=== PATIENT | male | born 1990 | race Caucasian/White ===

== ENCOUNTER 2020-01-10 19:58 | Emergency (ER) | payer MEDICAID ==
[2020-01-10] MEDS ORDERED: Acetaminophen 325 MG Tab PO ONE (21:05)
[2020-01-10] MEDS ORDERED: Amoxicillin 500 MG Cap PO ONE (21:05)
--- NOTE | 2020-01-10 21:09 | EDM.PDOC ---
ED HPI GENERAL MEDICAL PROBLEM - General Chief Complaint: Headache Stated Complaint: BRAIN IS HURTING Time Seen by Provider: 01/10/20 20:20 Source of Information: Reports: Patient History Limitations: Reports: Other (The patient is deaf but he is able to read and write without difficulty) - History of Present Illness INITIAL COMMENTS - FREE TEXT/NARRATIVE: This is a 29-year-old male. He is deaf but he is able to read and write with no difficulty. He comes in tonight because he has some nasal congestion and a runny nose and a headache. He says he cannot get any Tylenol from the stores because they are out or at least they are closed right now. He does have a mild cough that appears to be nonproductive. He was thinking he might have coronavirus but I explained to him after examination that he has a sinus infection. He denies any fever. He denies any sore throat. Apparently 3 weeks ago he was in [place] but I could not understand why. He states he was in the hospital but I am not certain if he was actually admitted to the hospital or just went to the hospital. He says he had some similar symptoms that he is having now but that was 3 weeks ago when he did not have a fever then. Overall he is here because of his nasal congestion and drainage and his headache. - Related Data Allergies Allergy/AdvReac Type Severity Reaction Status Date / Time No Known Allergies Allergy Verified 01/10/20 20:55 Home Meds: Home Meds Amoxicillin 500 mg PO TID #21 capsule 01/10/20 [Rx] ED ROS GENERAL - Review of Systems Review Of Systems: See Below Constitutional: Denies: Fever, Chills, Malaise HEENT: Reports: Rhinitis, Sinus Problem, Other (Patient is deaf). Denies: Ear Pain, Throat Pain, Throat Swelling Respiratory: Reports: Cough, Other (Nonproductive). Denies: Shortness of Breath Cardiovascular: Reports: No Symptoms Endocrine: Reports: No Symptoms GI/Abdominal: Denies: Abdominal Pain : Reports: No Symptoms Musculoskeletal: Reports: No Symptoms Skin: Reports: No Symptoms Neurological: Reports: No Symptoms Psychiatric: Reports: No Symptoms - Physical Exam Exam: See Below Exam Limited By: Other (The patient is deaf but he reads and writes without difficulty) General Appearance: Alert, WD/WN, No Apparent Distress Eye Exam: Bilateral Eye: Normal Inspection Ears: Normal External Exam, Normal Canal, Normal TMs Nose: Nasal Drainage, Clear Rhinorrhea. No: Nasal Flaring Throat/Mouth: Normal Inspection, Normal Lips, Normal Oropharynx, No Airway Compromise Head Exam: Normocephalic Neck: Supple, Non-Tender, Other (No nuchal rigidity) Respiratory/Chest: No Respiratory Distress, Lungs Clear, Normal Breath Sounds Cardiovascular: Regular Rate, Rhythm, No Murmur GI/Abdominal: Soft Neuro Exam (Abbreviated): Alert, Oriented, No Motor/Sensory Deficits Back Exam: Normal Inspection, Full Range of Motion Extremities: Normal Inspection, Normal Range of Motion Psychiatric: Normal Affect, Normal Mood Skin Exam: Warm, Dry Course - Vital Signs Last Recorded V/S: Last Vital Signs Temp 97.3 F 01/10/20 20:21 Pulse 68 01/10/20 20:21 Resp 18 01/10/20 20:21 BP 135/90 01/10/20 20:21 Pulse Ox 98 01/10/20 20:21 Departure - Departure Time of Disposition: 21:11 Disposition: Home, Self-Care 01 Condition: Fair Clinical Impression: Acute sinusitis Qualifiers: Sinusitis location: frontal Recurrence: non-recurrent Qualified Code(s): J01.10 - Acute frontal sinusitis, unspecified Acute bronchitis Qualifiers: Bronchitis organism: unspecified organism Qualified Code(s): J20.9 - Acute bronchitis, unspecified Headache Qualifiers: Headache type: unspecified Headache chronicity pattern: acute headache Intractability: not intractable Qualified Code(s): R51 - Headache - Discharge Information *PRESCRIPTION DRUG MONITORING PROGRAM REVIEWED*: Not Applicable *COPY OF PRESCRIPTION DRUG MONITORING REPORT IN PATIENT JONY: Not Applicable Prescriptions: Amoxicillin 500 mg PO TID #21 capsule Instructions: Sinus Headache, Acute Bronchitis, Adult, [id number], Sinusitis , Adult Referrals: PCP,Not In Area [Primary Care Provider] - Additional Instructions: When you go to the pharmacy tomorrow to get the antibiotic prescription, make certain you asked them for some Tylenol for your headache, need to rest and sleep as much as possible, you need to drink more water to stay well-hydrated it will help with your infection, return to the ER if needed Sepsis Event Note - Evaluation Sepsis Screening Result: No Definite Risk - Focused Exam Vital Signs: Vital Signs Temp Pulse Resp BP Pulse Ox 01/10/20 20:21 97.3 F 68 18 135/90 98 Date Exam was Performed: 01/10/20 Time Exam was Performed: 21:04
== END 2020-01-10 21:24 | disposition home or self-care (01) ==
LOC: JD.ED 19:58
DX: J01.10 Acute frontal sinusitis, unspecified (principal); J20.9 Acute bronchitis, unspecified
CPT/HCPCS: 99283; A9270

== ENCOUNTER 2020-02-25 21:19 | Emergency (ER) | payer MEDICAID ==
[2020-02-25] MEDS ORDERED: diphenhydrAMINE 50 MG/ML SDV IVPUSH ONE (21:43)
[2020-02-25] MEDS ORDERED: Metoclopramide 10 MG/2 ML SDV IVPUSH ONE (21:43)
[2020-02-25] MEDS ORDERED: Ketorolac 30 MG/ML SDV IVPUSH ONE (21:43)
[2020-02-25] MEDS ORDERED: Sodium Chloride 0.9% 1,000 ML IV ONE (21:43)
[2020-02-25] MEDS ORDERED: Sodium Chloride 0.9% 10 ML Syringe FLUSH PRN (21:43)
--- NOTE | 2020-02-25 21:49 | EDM.PDOC ---
ED HPI GENERAL MEDICAL PROBLEM - General Chief Complaint: Headache Stated Complaint: SEVERE HEADACHE Time Seen by Provider: 02/25/20 21:25 Source of Information: Reports: Patient History Limitations: Reports: Language Barrier (patient is deaf, but communicates well with paper) - History of Present Illness INITIAL COMMENTS - FREE TEXT/NARRATIVE: Patient is a 29-year-old male who presents to the ED for the evaluation of his headache. The patient is deaf, but does communicate well with paper and pen and was able to answer all questions appropriately. He states that around 1 PM today he developed a left-sided headache, that has some associated nausea and light sensitivity with it. He states that he had taken Tylenol every 3 hours, the rapid release version, x3 today. He was expressing concern over the possibility of taking too much Tylenol. The patient denies any other sick-like symptoms. He was recently seen in this ER in December for a sinus infection. Patient states that he is having some visual aura such as spots with this as well. Patient states he has a history of headaches, that he has been seen in [facility]. 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: Acetaminophen (x 3 doses since 1pm) Left Headache Pain Score (Numeric/FACES): 10 - Related Data Allergies Allergy/AdvReac Type Severity Reaction Status Date / Time No Known Allergies Allergy Verified 01/10/20 20:55 Home Meds: Home Meds FLUoxetine HCl [Fluoxetine] 0 mg PO DAILY 02/25/20 [History] diphenhydrAMINE HCL [Sleep Aid] 0 mg PO BEDTIME 02/25/20 [History] Past Medical History HEENT History: Reports: Hard of Hearing (pt is deaf) Social & Family History - Family History Family Medical History: Unobtainable ED ROS GENERAL - Review of Systems Review Of Systems: Comprehensive ROS is negative, except as noted in HPI. - Physical Exam Exam: See Below Exam Limited By: No Limitations General Appearance: Alert, WD/WN, No Apparent Distress Eye Exam: Bilateral Eye: EOMI, Normal Inspection, PERRL Ears: Normal External Exam, Normal Canal, Hearing Grossly Normal, Normal TMs Nose: Normal Inspection Throat/Mouth: Normal Inspection, Normal Lips, Normal Teeth, Normal Gums, Normal Oropharynx, Normal Voice, No Airway Compromise Head Exam: Atraumatic, Normocephalic Neck: Normal Inspection, Supple, Non-Tender, Full Range of Motion Respiratory/Chest: No Respiratory Distress, Lungs Clear, Normal Breath Sounds, No Accessory Muscle Use, Chest Non-Tender Cardiovascular: Normal Peripheral Pulses, Regular Rate, Rhythm, No Murmur Neuro Exam (Abbreviated): Alert, Oriented, Normal Cognition, No Motor/Sensory Deficits Extremities: Normal Inspection, Normal Capillary Refill Psychiatric: Normal Affect, Normal Mood Skin Exam: Warm, Dry, Intact, Normal Color, No Rash Course - Vital Signs Last Recorded V/S: Last Vital Signs Temp 96.6 F L 02/25/20 21:33 Pulse 69 02/25/20 21:33 Resp 20 02/25/20 21:33 BP 135/94 H 02/25/20 21:33 Pulse Ox 97 02/25/20 21:33 - Orders/Labs/Meds Orders: Active Orders 24 hr Category Date Time Status Peripheral IV Care [RC] . DIRECTED Care 02/25/20 21:43 Ordered Sodium Chloride 0.9% [Saline Flush] Med 02/25/20 21:43 Active 10 ml FLUSH ASDIRECTED PRN Peripheral IV Insertion Adult [OM.PC] Routine Oth 02/25/20 21:43 Ordered Medication Orders Sodium Chloride (Saline Flush) 10 ml FLUSH ASDIRECTED PRN PRN Reason: Keep Vein Open Last Admin: 02/25/20 21:56 Dose: 10 ml Meds: Medications Generic Name Dose Route Start Last Admin Trade Name Freq PRN Reason Stop Dose Admin Sodium Chloride 10 ml 02/25/20 21:43 02/25/20 21:56 Saline Flush FLUSH 10 ml ASDIRECTED PRN Administration Keep Vein Open Discontinued Medications Generic Name Dose Route Start Last Admin Trade Name Freq PRN Reason Stop Dose Admin Diphenhydramine HCl 25 mg 02/25/20 21:43 02/25/20 21:55 Benadryl IVPUSH 02/25/20 21:44 25 mg ONETIME ONE Administration Sodium Chloride 1,000 mls @ 999 mls/hr 02/25/20 21:43 02/25/20 21:56 Normal Saline IV 02/25/20 22:43 999 mls/hr ASDIRECTED ONE Administration Ketorolac Tromethamine 30 mg 02/25/20 21:43 02/25/20 21:55 Toradol IVPUSH 02/25/20 21:44 30 mg ONETIME ONE Administration Metoclopramide HCl 10 mg 02/25/20 21:43 02/25/20 21:56 Reglan IVPUSH 02/25/20 21:44 10 mg ONETIME ONE Administration - Re-Assessments/Exams Free Text/Narrative Re-Assessment/Exam: 02/25/20 21:48 Patient presents to the ED for the evaluation of his headache. He was questioning why he keeps getting headaches. I told him he will likely have to follow-up with his regular provider or neurologist for further evaluation of these. He seemed to elicit understanding at this time. Will have an IV placed with some fluids, 30 mg IV Toradol, 10 mg Reglan, and 25 mg Benadryl for headache management. 02/25/20 23:10 Patient was reassessed at bedside, and states that his headache is much better and is ready for discharge at this time. Departure - Departure Time of Disposition: 23:11 Disposition: Home, Self-Care 01 Condition: Good Clinical Impression: Headache Qualifiers: Headache type: unspecified Headache chronicity pattern: acute headache Intractability: not intractable Qualified Code(s): R51 - Headache - Discharge Information *PRESCRIPTION DRUG MONITORING PROGRAM REVIEWED*: No *COPY OF PRESCRIPTION DRUG MONITORING REPORT IN PATIENT JONY: No Instructions: General Headache Without Cause, [id number] Referrals: PCP,None [Primary Care Provider] - Forms: ED Department Discharge Additional Instructions: You were evaluated in the ED for your headache. You were given a combination of medications and IV fluid for management. This did seem to provide you pretty good relief of your symptoms. Recommend that you go home and rest in a quiet, darkened room. Try also to keep well hydrated. You may benefit from establishing with a family care provider if you do not already have one, for the possibility of a referral to neurology for further evaluation of your headaches. If you do not already have a provider please call our clinic and establish with a family practice provider of choice, our number is [phone]. Please return to the ED if your symptoms should change or worsen. Sepsis Event Note - Evaluation Sepsis Screening Result: No Definite Risk - Focused Exam Vital Signs: Vital Signs Temp Pulse Resp BP Pulse Ox 02/25/20 21:33 96.6 F L 69 20 135/94 H 97 Date Exam was Performed: 02/25/20 Time Exam was Performed: 23:10 - My Orders Last 24 Hours: My Active Orders 02/25/20 21:43 Peripheral IV Care [RC] . DIRECTED Sodium Chloride 0.9% [Saline Flush] 10 ml FLUSH ASDIRECTED PRN Peripheral IV Insertion Adult [OM.PC] Routine - Assessment/Plan Last 24 Hours: My Active Orders 02/25/20 21:43 Peripheral IV Care [RC] . DIRECTED Sodium Chloride 0.9% [Saline Flush] 10 ml FLUSH ASDIRECTED PRN Peripheral IV Insertion Adult [OM.PC] Routine
== END 2020-02-25 23:22 | disposition home or self-care (01) ==
LOC: JD.ED 21:19
DX: R51 Headache (principal); Z79.899 Other long term (current) drug therapy
CPT/HCPCS: 96374; 96375; 99283; J1200; J1885; J2765; J7030

== ENCOUNTER 2020-03-31 15:30 | Emergency (ER) | payer MEDICAID ==
[2020-03-31] MEDS ORDERED: Sodium Chloride 0.9% 10 ML Syringe FLUSH PRN (16:58)
[2020-03-31] MEDS ORDERED: Dextrose 5%-Lactated Ringers 1,000 ML IV SCH (17:00)
--- NOTE | 2020-03-31 17:48 | EDM.PDOC ---
ED HPI GENERAL MEDICAL PROBLEM - General Chief Complaint: General Stated Complaint: SUICIDAL IDEATIONS Time Seen by Provider: 03/31/20 17:02 Source of Information: Reports: Patient History Limitations: Reports: Language Barrier (pt is deaf, a design inserter was utilized at initial triage and exam) - History of Present Illness INITIAL COMMENTS - FREE TEXT/NARRATIVE: Patient is a 29-year-old male who presents to the ED for the evaluation of suicidal ideation. Patient presented to our clinic, and was brought to the ER by clinic staff for suicidal ideations. Patient is clinically deaf, and does only use sign language, but can also converse well if pen and paper have been provided. The patient told the sales property manager and the triage nurse that he only stated he was suicidal, because he was upset over his care in [place] that he received 2 months ago. Patient states that he does not have an active plan to commit suicide, and that he was having his ideations just because of the care he received at that facility. Patient states that he does live in [place] at a motel, but it does not have a kitchen in it, so he has been having issues with dehydration he can try to get himself fed and he uses his bicycle as his main mode of transportation, he notes since the weather has been warmer, he believes he is having some issue with dehydration because he states it is "too hot". Patient states that he does not really have a lot of money, and he has no family in the area, and states he also has a long criminal/psychiatric history, and that he has spent a fair amount of time at the [facility]. Patient states that he is on multiple medications, and has recently run out of his Prozac, but he thinks that if he get a refill of his Prozac that he would start feeling a little bit better. Patient is not combative, nor is he complaining of seeing things that are not there or hearing things that are not there, states he feels mildly nauseated, and slightly dehydrated otherwise he is having no other sick-like symptoms. Abdomen Pain Score (Numeric/FACES): 4 - Related Data Allergies Allergy/AdvReac Type Severity Reaction Status Date / Time No Known Allergies Allergy Verified 03/31/20 17:07 Home Meds: Home Meds FLUoxetine HCl [Fluoxetine HCl] 60 mg PO DAILY 03/31/20 [History] FLUoxetine HCl [Fluoxetine HCl] 60 mg PO DAILY #30 tablet 03/31/20 [Rx] Past Medical History HEENT History: Reports: Hard of Hearing Other HEENT History: left ear surgery Neurological History: Reports: Migraines Other Neuro History: unable to get any other past history as if pt does not know what i mean-writing board communnication. Psychiatric History: Reports: Psych Hospitalization(s), Suicidal Ideation - Past Surgical History HEENT Surgical History: Reports: Oral Surgery, Other (See Below) Other HEENT Surgeries/Procedures: Pt does not have any teeth, has had oral and ear surgeries in the past. Social & Family History - Family History Family Medical History: Unobtainable - Tobacco Use Smoking Status *Q: Never Smoker - Caffeine Use Caffeine Use: Reports: Soda - Recreational Drug Use Recreational Drug Use: No ED ROS GENERAL - Review of Systems Review Of Systems: Comprehensive ROS is negative, except as noted in HPI. ED EXAM, GENERAL - Physical Exam Exam: See Below Exam Limited By: Language Barrier General Appearance: Alert, WD/WN, No Apparent Distress Ears: Normal External Exam Nose: Normal Inspection Throat/Mouth: Normal Inspection, Normal Lips, Normal Teeth, Normal Gums, Normal Oropharynx, Normal Voice, No Airway Compromise Head: Atraumatic, Normocephalic Neck: Normal Inspection Respiratory/Chest: No Respiratory Distress, Lungs Clear, Normal Breath Sounds, No Accessory Muscle Use, Chest Non-Tender Cardiovascular: Normal Peripheral Pulses, Regular Rate, Rhythm, No Murmur Peripheral Pulses: 3+: Radial (L), Radial (R) GI/Abdominal: Normal Bowel Sounds, Soft, Non-Tender, No Distention, No Mass Extremities: Normal Inspection, Normal Capillary Refill Neurological: Alert, Oriented, CN II-XII Intact (grossly), Normal Cognition, No Motor/Sensory Deficits Psychiatric: Normal Affect, Normal Mood Skin Exam: Warm, Dry, Intact, Normal Color, No Rash Course - Vital Signs Last Recorded V/S: Last Vital Signs Temp 98.4 F 03/31/20 16:25 Pulse 72 03/31/20 16:25 Resp 16 03/31/20 16:25 BP 129/87 03/31/20 16:25 Pulse Ox 99 03/31/20 16:25 - Orders/Labs/Meds Orders: Active Orders 24 hr Category Date Time Status Peripheral IV Care [RC] . DIRECTED Care 03/31/20 16:59 Active Abdomen 2V AP Flat Upright [CR] Stat Exams 03/31/20 16:58 Taken UA W/MICROSCOPIC [URIN] Stat Lab 03/31/20 17:00 Ordered Dextrose 5%-Lactated Ringers 1,000 ml Med 03/31/20 17:00 Active IV ASDIRECTED Sodium Chloride 0.9% [Saline Flush] Med 03/31/20 16:58 Active 10 ml FLUSH ASDIRECTED PRN Peripheral IV Insertion Adult [OM.PC] Stat Oth 03/31/20 16:58 Ordered Medication Orders Dextrose/Lactated Ringer's (Dextrose 5%-Lactated Ringers) 1,000 mls @ 999 mls/ hr IV ASDIRECTED GAYLA Last Admin: 03/31/20 17:18 Dose: 999 mls/hr Sodium Chloride (Saline Flush) 10 ml FLUSH ASDIRECTED PRN PRN Reason: Keep Vein Open Last Admin: 03/31/20 17:18 Dose: 10 ml Labs: Laboratory Tests 03/31/20 03/31/20 Range/Units 16:55 16:55 WBC 6.22 (4.23-9.07) K/mm3 RBC 5.20 (4.63-6.08) M/mm3 Hgb 15.4 (13.7-17.5) gm/dl Hct 43.6 (40.1-51.0) % MCV 83.8 (79.0-92.2) fl MCH 29.6 (25.7-32.2) pg MCHC 35.3 (32.2-35.5) g/dl RDW Std Deviation 38.8 (35.1-43.9) fL Plt Count 205 (163-337) K/mm3 MPV 11.1 (9.4-12.3) fl Neut % (Auto) 53.6 (34.0-67.9) % Lymph % (Auto) 25.9 (21.8-53.1) % Allen % (Auto) 6.9 (5.3-12.2) % Eos % (Auto) 12.2 H (0.8-7.0) Baso % (Auto) 1.1 (0.1-1.2) % Neut # (Auto) 3.33 (1.78-5.38) K/mm3 Lymph # (Auto) 1.61 (1.32-3.57) K/mm3 Allen # (Auto) 0.43 (0.30-0.82) K/mm3 Eos # (Auto) 0.76 H (0.04-0.54) K/mm3 Baso # (Auto) 0.07 (0.01-0.08) K/mm3 Sodium 144 (136-145) mEq/L Potassium 3.3 L (3.5-5.1) mEq/L Chloride 105 (98-107) mEq/L Carbon Dioxide 28 (21-32) mEq/L Anion Gap 14.3 (5-15) BUN 6 L (7-18) mg/dL Creatinine 1.0 (0.7-1.3) mg/dL Est Cr Clr Drug Dosing 113.30 mL/min Estimated GFR (MDRD) > 60 (>60) mL/min BUN/Creatinine Ratio 6.0 L (14-18) Glucose 111 H (74-106) mg/dL Calcium 8.9 (8.5-10.1) mg/dL Magnesium 1.8 (1.8-2.4) mg/dl Total Bilirubin 2.1 H (0.2-1.0) mg/dL AST 41 H (15-37) U/L ALT 57 (16-63) U/L Alkaline Phosphatase 112 (46-116) U/L Total Protein 7.7 (6.4-8.2) g/dl Albumin 3.9 (3.4-5.0) g/dl Globulin 3.8 gm/dL Albumin/Globulin Ratio 1.0 (1-2) Meds: Medications Generic Name Dose Route Start Last Admin Trade Name Freq PRN Reason Stop Dose Admin Dextrose/Lactated Ringer's 1,000 mls @ 999 mls/hr 03/31/20 17:00 03/31/20 17: 18 Dextrose 5%-Lactated Ringers IV 999 mls/hr ASDIRECTED GAYLA Administration Sodium Chloride 10 ml 03/31/20 16:58 03/31/20 17:18 Saline Flush FLUSH 10 ml ASDIRECTED PRN Administration Keep Vein Open Discontinued Medications Generic Name Dose Route Start Last Admin Trade Name Freq PRN Reason Stop Dose Admin Magnesium Citrate 296 ml 03/31/20 18:42 Citrate Of Magnesia PO 03/31/20 18:43 ONETIME ONE Potassium Chloride 40 meq 03/31/20 17:55 03/31/20 18:32 Klor-Con M20 PO 03/31/20 17:56 40 meq ONETIME ONE Administration - Re-Assessments/Exams Free Text/Narrative Re-Assessment/Exam: 03/31/20 17:51 Patient upon talking with the patient was brought to the ED for evaluation of his suicidal ideations. I do not believe he is suicidal at all, this is more of a suicidal issue. We will place an IV get some labs given some IV fluids, to get abdomen x-ray as he was complaining of some mild nausea and pointed to his belly when he asked if he was in pain. I will direct him to [facility] tomorrow for further services that he can obtain, and I will try to refill his Prozac for him. It appears that he takes 60mg daily of fluoxetine. 03/31/20 17:54 His abdomen x-ray was taken, and he does have quite a bit of stool throughout his colon, suggestive of constipation. I am hopeful that IV fluids will help, and patient will likely be sent home with a bottle of magnesium citrate. 03/31/20 18:44 I was able to talk with Yandy through [facility], and she does know this gentleman and states that he does have a guardian in [place], and he does email them regularly, but thinks he would probably benefit from a little bit more services at this time, and was wondering about filing a productive adult services order on him, talking with his guardian. I do believe this to be an appropriate plan, and she will try to reach out with him tomorrow. At this time there is no acute reasons to keep him in the ER any longer, he will be discharged after the food has been given to him and he has gotten his fluids. Departure - Departure Time of Disposition: 18:54 Disposition: Home, Self-Care 01 Condition: Good Clinical Impression: Passive suicidal ideations, Dehydration Constipation Qualifiers: Constipation type: unspecified constipation type Qualified Code(s): K59.00 - Constipation, unspecified - Discharge Information *PRESCRIPTION DRUG MONITORING PROGRAM REVIEWED*: No *COPY OF PRESCRIPTION DRUG MONITORING REPORT IN PATIENT JONY: No Prescriptions: FLUoxetine HCl [Fluoxetine HCl] 60 mg PO DAILY #30 tablet Instructions: Suicidal Feelings: How to Help Yourself Forms: ED Department Discharge Additional Instructions: You were evaluated in the ER today for a few different complaints. You were given a prescription for your Prozac medication, please fill this at any pharmacy and start taking as previously directed. [employer] was contacted on your behalf, they will be contacting you to see if you could benefit from some of their social service manager, please correspond with them to try to get yourself in a better place and see if they have any services that could better help you. This would be regarding psychiatric/societal/other. They have multiple venues to utilize. Please try to keep yourself well-hydrated if you are going to be out in the elements during the summertime, as it gets quite warm and you will need to drink water and/or Gatorade to keep and stay hydrated. Laboratory evaluation today demonstrates no acute abnormalities, you were slightly dehydrated so you were given IV fluids, your abdomen x-ray also showed that you were quite constipated. You were given a bottle of magnesium citrate to help relieve the constipation. Please return to the ER at any time if your symptoms should change or worsen. Sepsis Event Note (ED) - Evaluation Sepsis Screening Result: No Definite Risk - Focused Exam Vital Signs: Vital Signs Temp Pulse Resp BP Pulse Ox 03/31/20 16:25 98.4 F 72 16 129/87 99 - My Orders Last 24 Hours: My Active Orders 03/31/20 16:58 Abdomen 2V AP Flat Upright [CR] Stat Sodium Chloride 0.9% [Saline Flush] 10 ml FLUSH ASDIRECTED PRN Peripheral IV Insertion Adult [OM.PC] Stat 03/31/20 16:59 Peripheral IV Care [RC] . DIRECTED 03/31/20 17:00 UA W/MICROSCOPIC [URIN] Stat Dextrose 5%-Lactated Ringers 1,000 ml IV ASDIRECTED - Assessment/Plan Last 24 Hours: My Active Orders 03/31/20 16:58 Abdomen 2V AP Flat Upright [CR] Stat Sodium Chloride 0.9% [Saline Flush] 10 ml FLUSH ASDIRECTED PRN Peripheral IV Insertion Adult [OM.PC] Stat 03/31/20 16:59 Peripheral IV Care [RC] . DIRECTED 03/31/20 17:00 UA W/MICROSCOPIC [URIN] Stat Dextrose 5%-Lactated Ringers 1,000 ml IV ASDIRECTED
[2020-03-31] MEDS ORDERED: Potassium Chloride 20 MEQ Tab.ER PO ONE (17:55)
[2020-03-31] MEDS ORDERED: Magnesium Citrate Solution 296 ML Bottle PO ONE (18:42)
--- NOTE | 2020-04-01 07:39 | CR ---
Abdomen: Supine and upright views of the abdomen were obtained. Comparison: No previous study. Bowel gas pattern is normal. No abnormal calcifications or soft tissue abnormality is seen. Bony structures are unremarkable. Impression: 1. Nothing acute is seen on 2 view abdominal x-ray. Diagnostic code #1 Study was dictated in MDT
== END 2020-03-31 19:34 | disposition home or self-care (01) ==
LOC: JD.ED 15:30
DX: R45.851 Suicidal ideations (principal); E86.0 Dehydration; K59.00 Constipation, unspecified; Z79.899 Other long term (current) drug therapy
CPT/HCPCS: 36415; 74019; 74019-26; 80053; 83735; 85025; 96360; 99284; 99285-25; A9270-GY; J7121

== ENCOUNTER 2020-04-01 16:22 | Emergency (ER) | payer MEDICAID ==
[2020-04-01] MEDS ORDERED: Sodium Chloride 0.9% 10 ML Syringe FLUSH PRN (16:53)
[2020-04-01] MEDS ORDERED: Sodium Chloride 0.9% 1,000 ML IV ONE (16:54)
[2020-04-01] MEDS ORDERED: Metoclopramide 10 MG/2 ML SDV IVPUSH ONE (16:54)
--- NOTE | 2020-04-01 17:02 | EDM.PDOC ---
ED HPI GENERAL MEDICAL PROBLEM - General Chief Complaint: Gastrointestinal Problem Stated Complaint: ABDOMINAL PAIN,DIARRHEA AND LEG PAIN Time Seen by Provider: 04/01/20 16:41 Source of Information: Reports: Patient, RN Notes Reviewed History Limitations: Reports: Language Barrier (pt is deaf; but communicates well with whiteboard/pen/paper.) - History of Present Illness INITIAL COMMENTS - FREE TEXT/NARRATIVE: Patient is a 29-year-old male who presents to the ED for the evaluation of his abdominal pain, diarrhea, and leg pain. Patient was evaluated in this ER yesterday for a few different complaints, he was found to have constipation was dehydrated, and had passive suicidal ideations he had no plan yesterday, that would deem him a harm to himself or others, and was not sought care for psychiatrically. He was given a prescription for Prozac, to take on outpatient basis, was given IV fluids, potassium supplementation, given a meal and discharged home. Patient tried to take the magnesium citrate at home, states he drank 2 ounces of this, and began to have abdominal cramping and diarrhea so he stopped taking the magnesium citrate, also he did not like the taste. He states that he has generalized pain in his legs, as he does use a bicycle for transportation. Patient states that he also has a history of asthma, and has had a cough as of late, but denies any fevers or chills. Patient is in no obvious respiratory distress at the time of exam. We did try to explain to him that the magnesium citrate can cause belly cramping and pain and end with some looser stools, but he states he only did take 2 ounces of this. Abdominal Pain Score (Numeric/FACES): 7 - Related Data Allergies Allergy/AdvReac Type Severity Reaction Status Date / Time No Known Allergies Allergy Verified 04/01/20 17:28 Home Meds: Home Meds FLUoxetine HCl [Fluoxetine HCl] 60 mg PO DAILY 03/31/20 [History] FLUoxetine HCl [Fluoxetine HCl] 60 mg PO DAILY #30 tablet 03/31/20 [Rx] Past Medical History HEENT History: Reports: Hard of Hearing Other HEENT History: left ear surgery Respiratory History: Reports: Asthma Neurological History: Reports: Migraines Other Neuro History: unable to get any other past history as if pt does not know what i mean-writing board communication. Psychiatric History: Reports: Psych Hospitalization(s), Suicidal Ideation - Past Surgical History HEENT Surgical History: Reports: Oral Surgery, Other (See Below) Other HEENT Surgeries/Procedures: Pt does not have any teeth, has had oral and ear surgeries in the past. Social & Family History - Family History Family Medical History: Unobtainable - Caffeine Use Caffeine Use: Reports: Soda - Living Situation & Occupation Living situation: Reports: Single, Alone Social History Comment: pt is deaf; currently lives [facility]; was told by [facility] that he has a guardian in [place]. ED ROS GENERAL - Review of Systems Review Of Systems: See Below Constitutional: Denies: Fever, Chills Respiratory: Reports: Shortness of Breath (pt states that he has Asthma; not in any respiratory distress and O2 sats ar 96% on room air.) GI/Abdominal: Reports: Abdominal Pain (generalized), Constipation, Diarrhea (states had a loose stool after drinking small amount of magnesium citrate), Nausea. Denies: Vomiting : Denies: Dysuria Neurological: Denies: Dizziness Psychiatric: Denies: Depression, Homicidal Ideation, Suicidal Ideation ED EXAM, GI/ABD - Physical Exam Exam: See Below Exam Limited By: Language Barrier (pt is deaf; communicates well with pen/paper/whiteboard) General Appearance: Alert, WD/WN, No Apparent Distress Eyes: Bilateral: Normal Appearance Ears: Normal External Exam Nose: Normal Inspection Throat/Mouth: Normal Inspection, Normal Lips, Normal Teeth, Normal Gums, Normal Oropharynx, Normal Voice, No Airway Compromise Head: Atraumatic, Normocephalic Neck: Normal Inspection Respiratory/Chest: No Respiratory Distress, Lungs Clear, Normal Breath Sounds, No Accessory Muscle Use, Chest Non-Tender Cardiovascular: Normal Peripheral Pulses, Regular Rate, Rhythm, No Edema, No Murmur GI/Abdominal Exam: Soft, Tender (generalized abdomen tenderness), Abnormal Bowel Sounds (hypoactive tones). No: Guarding, Rigid Extremities: Normal Inspection, Normal Capillary Refill Neurological: Alert, Oriented, Normal Cognition, No Motor/Sensory Deficits Psychiatric: Normal Affect, Normal Mood Skin Exam: Warm, Dry, Intact, Normal Color, No Rash Course - Vital Signs Last Recorded V/S: Last Vital Signs Temp 96.9 F 04/01/20 16:47 Pulse 75 04/01/20 16:47 Resp 16 04/01/20 16:47 BP 107/79 04/01/20 16:47 Pulse Ox 96 04/01/20 16:47 - Orders/Labs/Meds Orders: Active Orders 24 hr Category Date Time Status Peripheral IV Care [RC] . DIRECTED Care 04/01/20 16:53 Ordered Sodium Chloride 0.9% [Saline Flush] Med 04/01/20 16:53 Ordered 10 ml FLUSH ASDIRECTED PRN Peripheral IV Insertion Adult [OM.PC] Stat Oth 04/01/20 16:53 Ordered Medication Orders Sodium Chloride (Saline Flush) 10 ml FLUSH ASDIRECTED PRN PRN Reason: Keep Vein Open Last Admin: 04/01/20 17:14 Dose: 10 ml Documented by: VALERIANO Labs: Laboratory Tests 04/01/20 04/01/20 Range/Units 17:10 17:10 WBC 5.94 (4.23-9.07) K/mm3 RBC 4.96 (4.63-6.08) M/mm3 Hgb 14.7 (13.7-17.5) gm/dl Hct 42.1 (40.1-51.0) % MCV 84.9 (79.0-92.2) fl MCH 29.6 (25.7-32.2) pg MCHC 34.9 (32.2-35.5) g/dl RDW Std Deviation 39.5 (35.1-43.9) fL Plt Count 197 (163-337) K/mm3 MPV 11.1 (9.4-12.3) fl Neutrophils % (Manual) 57 (40-60) % Band Neutrophils % 0 (0-10) % Lymphocytes % (Manual) 29 (20-40) % Atypical Lymphs % 0 % Monocytes % (Manual) 6 (2-10) % Eosinophils % (Manual) 8 H (0.8-7.0) % Basophils % (Manual) 0 L (0.2-1.2) Platelet Estimate Adequate RBC Morph Comment Normal Sodium 141 (136-145) mEq/L Potassium 3.6 (3.5-5.1) mEq/L Chloride 107 (98-107) mEq/L Carbon Dioxide 28 (21-32) mEq/L Anion Gap 9.6 (5-15) BUN 8 (7-18) mg/dL Creatinine 0.9 (0.7-1.3) mg/dL Est Cr Clr Drug Dosing 4.34 mL/min Estimated GFR (MDRD) > 60 (>60) mL/min BUN/Creatinine Ratio 8.9 L (14-18) Glucose 103 (74-106) mg/dL Calcium 8.8 (8.5-10.1) mg/dL Magnesium 2.0 (1.8-2.4) mg/dl Total Bilirubin 3.3 H (0.2-1.0) mg/dL AST 37 (15-37) U/L ALT 52 (16-63) U/L Alkaline Phosphatase 113 (46-116) U/L Total Protein 7.1 (6.4-8.2) g/dl Albumin 3.7 (3.4-5.0) g/dl Globulin 3.4 gm/dL Albumin/Globulin Ratio 1.1 (1-2) Meds: Medications Generic Name Dose Route Start Last Admin Trade Name Freq PRN Reason Stop Dose Admin Sodium Chloride 10 ml 04/01/20 16:53 04/01/20 17:14 Saline Flush FLUSH 10 ml ASDIRECTED PRN Administration Keep Vein Open Discontinued Medications Generic Name Dose Route Start Last Admin Trade Name Freq PRN Reason Stop Dose Admin Dicyclomine HCl 20 mg 04/01/20 17:07 04/01/20 17:19 Bentyl PO 04/01/20 17:08 20 mg ONETIME ONE Administration Sodium Chloride 1,000 mls @ 999 mls/hr 04/01/20 16:54 04/01/20 17:14 Normal Saline IV 04/01/20 17:54 999 mls/hr ONETIME ONE Administration Metoclopramide HCl 10 mg 04/01/20 16:54 04/01/20 17:13 Reglan IVPUSH 04/01/20 16:55 10 mg ONETIME ONE Administration - Re-Assessments/Exams Free Text/Narrative Re-Assessment/Exam: 04/01/20 17:13 Patient presents to the ED for the evaluation of his abdominal pain/diarrhea, and leg pain. I am trying to get a hold of [facility] [employer], to try to provide this gentleman some social help. Miller did not give me his guardian's contact info yesterday, however if I do not hear from [facility] in a short amount of time I will refer the case again to [facility] and have them try to come help the gentleman. Nonetheless we will repeat labs, get some IV fluids, and try to get his symptoms under control. He appears to be in no obvious distress or horrible discomfort. I was made aware by the ER director that some of our marketing staff had seen a few posts from the patient on the hospital Facebook page regarding him being a vulnerable adult; I was worried about that yesterday and the staff (Yandy) at [facility] were going to contact the patient for more services today. 04/01/20 17:44 I was able to talk with [facility] social psychologist (Rose), and Stefano through [facility] human services, that is in conjunction with [facility]. And I was able to get the guardians contact information in [place] this person's name is Sania Aguilarkathryn, telephone number is [phone]. She will be added to his next of kin/person to notify as a contact. She states that she sends him $300 at the beginning of each month and he is pretty frugal, and that he chooses to panhandle. She states that if he needs medications filled, that she will pay with credit card over the phone. Sania also stated the Ross should have a consultation with staff from [facility] tomorrow; she believed. Departure - Departure Time of Disposition: 18:32 Disposition: Home, Self-Care 01 Condition: Good Clinical Impression: Dehydration Constipation Qualifiers: Constipation type: unspecified constipation type Qualified Code(s): K59.00 - Constipation, unspecified Pain in the abdomen Qualifiers: Abdominal location: generalized Qualified Code(s): R10.84 - Generalized abdominal pain - Discharge Information *PRESCRIPTION DRUG MONITORING PROGRAM REVIEWED*: No *COPY OF PRESCRIPTION DRUG MONITORING REPORT IN PATIENT JONY: No Referrals: PCP,Unknown [Primary Care Provider] - Forms: ED Department Discharge Additional Instructions: You were evaluated in the ER today regarding your abdominal pain/diarrhea, and leg fatigue. You did have some labs drawn and again these were within normal limits, and you are slightly dehydrated by clinical exam. You were given IV fluids, and another meal at this ER visit. You also given some IV medications to help with nausea and abdominal pain. This seemed to help relieve your symptoms greatly. Recommend you still take the magnesium citrate for a bowel cleanse, you may mix this with a Gatorade, or any other liquid of choice to try to mask the flavor of the magnesium citrate. This is again to relieve the constipation that was rev ealed yesterday on exam. You will get some abdominal cramping with magnesium citrate, I recommend you take some ibuprofen for the abdominal cramping. You will likely end up getting a few looser stools after you have had a few good bowel movements. Since you did fill the Prozac, or fluoxetine, I would recommend you start taking that on a daily basis to help try to regulate your moods. Your guardian, Sania, would like you to contact her, just to see how you have been doing the past couple days. It was made aware to me that someone from [facility] [employer] should be contacting you tomorrow regarding further services. Please return to the ER at any time if your symptoms should change or worsen. Sepsis Event Note (ED) - Focused Exam Vital Signs: Vital Signs Temp Pulse Resp BP Pulse Ox 04/01/20 16:47 96.9 F 75 16 107/79 96 - My Orders Last 24 Hours: My Active Orders 04/01/20 16:53 Peripheral IV Care [RC] . DIRECTED Sodium Chloride 0.9% [Saline Flush] 10 ml FLUSH ASDIRECTED PRN Peripheral IV Insertion Adult [OM.PC] Stat - Assessment/Plan Last 24 Hours: My Active Orders 04/01/20 16:53 Peripheral IV Care [RC] . DIRECTED Sodium Chloride 0.9% [Saline Flush] 10 ml FLUSH ASDIRECTED PRN Peripheral IV Insertion Adult [OM.PC] Stat
[2020-04-01] MEDS ORDERED: Dicyclomine 10 MG Cap PO ONE (17:07)
== END 2020-04-01 19:05 | disposition home or self-care (01) ==
LOC: JD.ED 16:22
DX: K59.00 Constipation, unspecified (principal); E86.0 Dehydration; J45.909 Unspecified asthma, uncomplicated; Z79.899 Other long term (current) drug therapy
CPT/HCPCS: 36415; 80053; 83735; 85007; 85027; 96361; 96374; 99284; A9270; J2765; J7030; 99283

== ENCOUNTER 2020-06-03 20:29 | Emergency (ER) | payer MEDICAID ==
[2020-06-03] MEDS ORDERED: diphenhydrAMINE 50 MG/ML SDV IVPUSH STA (21:25)
[2020-06-03] MEDS ORDERED: Ketorolac 30 MG/ML SDV IVPUSH STA (21:25)
[2020-06-03] MEDS ORDERED: Metoclopramide 10 MG/2 ML SDV IVPUSH STA (21:25)
[2020-06-03] MEDS ORDERED: Sodium Chloride 0.9% 1,000 ML IV ONE (21:25)
--- NOTE | 2020-06-03 21:29 | EDM.PDOC ---
ED HPI GENERAL MEDICAL PROBLEM - General Chief Complaint: Gastrointestinal Problem Stated Complaint: VOMITING/HEADACHES Time Seen by Provider: 06/03/20 20:44 Source of Information: Reports: Patient History Limitations: Reports: Physical Impairment (Deaf) - History of Present Illness INITIAL COMMENTS - FREE TEXT/NARRATIVE: Mr. Severino is a very pleasant 29-year-old gentleman with no chronic medical problems other than being deaf, who now presents the ED stating that he developed a headache, a burning sensation felt in his left religion, yesterday, associated with nausea, vomiting, slight photophobia, and possible visual changes, although the patient was unable to elaborate on that. No associated neurologic symptoms, such as tingling, numbness, or weakness. The patient reported that his headache severity was an 8/10 yesterday, but down to a 3/10 today. He reported that his headache is typical of his recurrent headaches, which he indicated to me occurs every couple of weeks. The patient reported to the triage nurse that he took 500 mg of Tylenol around 15:00 today. He also reported that he experienced 4 episodes of watery diarrhea last week, and one episode today. Here in the ED, the patient is found to be hemodynamically stable, afebrile, saturating 98% on room air. Other than his recurrent headaches, slight photophobia, nausea, vomiting, and watery diarrhea, the patient denies having a recent fever, chills, sore throat, ear pain, nasal or sinus congestion, cough, dyspnea, chest pain, palpitations, constipation, abdominal pain, urinary symptoms, recent weight gain or weight loss, recent bloody bowel movements or black bowel movements, recent joint aches, or rashes. The patient does not have a PCP. Headache Pain Score (Numeric/FACES): 3 - Related Data Allergies Allergy/AdvReac Type Severity Reaction Status Date / Time No Known Allergies Allergy Verified 06/03/20 20:52 Home Meds: Home Meds FLUoxetine HCl [Fluoxetine HCl] 60 mg PO DAILY #30 tablet 03/31/20 [Rx] Past Medical History HEENT History: Reports: Hard of Hearing (Deaf) Neurological History: Reports: Headaches, Chronic Psychiatric History: Reports: Depression, Psych Hospitalization(s), Suicidal Ideation - Past Surgical History HEENT Surgical History: Reports: Oral Surgery (dental extractons), Other (See Below) (left ear surgery) Social & Family History - Family History Family Medical History: Unobtainable - Tobacco Use Smoking Status *Q: Unknown Ever Smoked - Caffeine Use Caffeine Use: Reports: None - Recreational Drug Use Recreational Drug Use: No - Living Situation & Occupation Living situation: Reports: Single, Alone Occupation: Unemployed ED ROS GENERAL - Review of Systems Review Of Systems: Comprehensive ROS is negative, except as noted in HPI. - Physical Exam Exam: See Below Exam Limited By: No Limitations General Appearance: Alert, WD/WN, No Apparent Distress Eye Exam: Bilateral Eye: EOMI, Normal Inspection, PERRL Ears: Normal External Exam, Other (Deaf) Nose: Normal Inspection, Normal Mucosa, No Blood Throat/Mouth: Normal Inspection, Normal Lips, Normal Teeth, Normal Gums, Normal Oropharynx, Normal Voice, No Airway Compromise Head Exam: Atraumatic, Normocephalic Neck: Normal Inspection, Supple, Non-Tender, Full Range of Motion. No: Lymphadenopathy (L), Lymphadenopathy (R) Respiratory/Chest: No Respiratory Distress, Lungs Clear, Normal Breath Sounds, No Accessory Muscle Use Cardiovascular: Normal Peripheral Pulses, Regular Rate, Rhythm, No Edema, No Gallop, No JVD, No Murmur, No Rub GI/Abdominal: Normal Bowel Sounds, Soft, Non-Tender, No Organomegaly, No Distention, No Abnormal Bruit, No Mass (Male) Exam: Deferred Rectal (Males) Exam: Deferred Neuro Exam (Abbreviated): Alert, CN II-XII Intact, No Motor/Sensory Deficits Back Exam: Normal Inspection, Full Range of Motion, NT Extremities: Normal Inspection, Normal Range of Motion, No Pedal Edema, Normal Capillary Refill Psychiatric: Normal Affect Skin Exam: Warm, Dry, Intact, Normal Color, No Rash Course - Vital Signs Last Recorded V/S: Last Vital Signs Temp 36.2 C 06/03/20 20:42 Pulse 79 06/03/20 20:42 Resp 18 06/03/20 20:42 BP 134/88 06/03/20 20:42 Pulse Ox 98 06/03/20 20:42 - Orders/Labs/Meds Meds: Medications Discontinued Medications Generic Name Dose Route Start Last Admin Trade Name Freq PRN Reason Stop Dose Admin Diphenhydramine HCl 25 mg 06/03/20 21:25 06/03/20 22:11 Benadryl IVPUSH 06/03/20 21:26 25 mg ONETIME STA Administration Sodium Chloride 1,000 mls @ 999 mls/hr 06/03/20 21:25 06/03/20 22:11 Normal Saline IV 06/03/20 22:25 999 mls/hr ONETIME ONE Administration Ketorolac Tromethamine 30 mg 06/03/20 21:25 06/03/20 22:11 Toradol IVPUSH 06/03/20 21:26 30 mg ONETIME STA Administration Metoclopramide HCl 10 mg 06/03/20 21:25 06/03/20 22:11 Reglan IVPUSH 06/03/20 21:26 10 mg ONETIME STA Administration - Re-Assessments/Exams Free Text/Narrative Re-Assessment/Exam: 06/03/20 21:27 As above, the patient appears to have developed a left temporal area headache yesterday, which improved from an 8/10 yesterday to a 3/10 today but is associated with nausea and vomiting since yesterday. His neurologic exam at this time is completely normal. I see from prior medical records at that the patient has had similar headaches with good relief after being given Toradol, Reglan, and Benadryl, therefore I have ordered the same, along with IV fluid. 06/03/20 23:01 I went and checked on the patient. He indicates that he is feeling better, well enough to go home. Departure - Departure Time of Disposition: 23:02 Disposition: Home, Self-Care 01 Condition: Good Clinical Impression: Headache Qualifiers: Headache type: unspecified Headache chronicity pattern: acute headache Intractability: not intractable Qualified Code(s): R51 - Headache - Discharge Information *PRESCRIPTION DRUG MONITORING PROGRAM REVIEWED*: Not Applicable *COPY OF PRESCRIPTION DRUG MONITORING REPORT IN PATIENT JONY: Not Applicable Instructions: General Headache Without Cause, [id number] Referrals: PCP,None [Primary Care Provider] - Forms: ED Department Discharge Additional Instructions: You were seen in the emergency room for 2 days of a headache with nausea and vomiting. You were treated with IV fluid and 3 different medicines, with significant improvement in your headache. Going forward, we recommend that you stay adequately hydrated. Gatorade or Powerade are best. Get plenty of rest in a dark place. If any other problems, please do not hesitate to return to the ER. Sepsis Event Note (ED) - Evaluation Sepsis Screening Result: No Definite Risk - Focused Exam Vital Signs: Vital Signs Temp Pulse Resp BP Pulse Ox 06/03/20 20:42 36.2 C 79 18 134/88 98
== END 2020-06-03 23:30 | disposition home or self-care (01) ==
LOC: JD.ED 20:29
DX: R51 Headache (principal); R11.2 Nausea with vomiting, unspecified; F32.9 Major depressive disorder, single episode, unspecified; H91.90 Unspecified hearing loss, unspecified ear; Z79.899 Other long term (current) drug therapy
CPT/HCPCS: 96361; 96374; 96375; 99283-25; J1200; J1885; J2765; J7030

== ENCOUNTER 2020-07-08 17:48 | Emergency (ER) | payer MEDICAID ==
[2020-07-08] MEDS ORDERED: FLUoxetine 20 MG Cap PO ONE (20:10)
[2020-07-08] MEDS ORDERED: QUEtiapine 100 MG Tab PO ONE (20:10)
--- NOTE | 2020-07-08 20:11 | EDM.PDOC ---
ED HPI GENERAL MEDICAL PROBLEM - General Chief Complaint: Medication Administration Stated Complaint: MEDICATION REFILL Time Seen by Provider: 07/08/20 20:06 Source of Information: Reports: Patient History Limitations: Reports: Other (does not communicate verbally. Writes his problems down .) - History of Present Illness INITIAL COMMENTS - FREE TEXT/NARRATIVE: 29-year-old male presents to the ED primarily for medication refills. By history he has a history of major depressive illness with associated insomnia. I could not get a firm history that he has bipolar disorder. He interestingly does not speak. He writes information down to communicate with us. He states he has not slept for the last 3 days due to lack of medications. He tried to get medications refilled through his primary care physician but they never returned his phone calls. Patient is currently on Seroquel require atropine 100 mg every night at bedtime and 60 mg of Prozac daily usually in the morning. He has been without medications for 3 days. He is not showing any serious symptoms of medication withdrawal at this time. He denies being diabetic and is quite thin in stature. He denies feeling any suicidal ideation but he is extremely tired from not being able to sleep. States decreased appetite at this time. Onset: Gradual Onset Date: 07/04/20 Duration: Day(s): (Taken medications on the .), Getting Worse Location: Reports: Generalized (Feels lousy. Loss of appetite unable to sleep for 3 days.) Quality: Reports: Other (Significant insomnia.) Severity: Moderate Improves with: Reports: None Worsens with: Reports: None Context: Reports: Other (Unable to get medications refilled that he is taking chronically.). Denies: Activity, Exercise, Lifting, Sick Contact, Trauma Associated Symptoms: Reports: Headaches ( decreased appetite.), Loss of Appetite (Not sleeping), Malaise, Weakness. 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) (None.) - Related Data Allergies Allergy/AdvReac Type Severity Reaction Status Date / Time No Known Allergies Allergy Verified 07/08/20 18:26 Home Meds: Home Meds FLUoxetine HCl [Fluoxetine HCl] 60 mg PO DAILY #30 tablet 03/31/20 [Rx] FLUoxetine HCl [Prozac] 60 mg PO DAILY #90 capsule 07/08/20 [Rx] QUEtiapine Fumarate [Quetiapine Fumarate] 100 mg PO DAILY #30 tablet 07/08/20 [Rx] Past Medical History HEENT History: Reports: Hard of Hearing (Deaf) Other HEENT History: left ear surgery Cardiovascular History: Reports: None Respiratory History: Reports: Asthma Gastrointestinal History: Reports: None Genitourinary History: Reports: None Musculoskeletal History: Reports: None Neurological History: Reports: Headaches, Chronic Other Neuro History: unable to get any other past history as if pt does not know what i mean-writing board communication. Psychiatric History: Reports: Depression, Psych Hospitalization(s), Suicidal Ideation Endocrine/Metabolic History: Reports: None Hematologic History: Reports: None Immunologic History: Reports: None Oncologic (Cancer) History: Reports: None Dermatologic History: Reports: None - Infectious Disease History Infectious Disease History: Reports: None - Past Surgical History HEENT Surgical History: Reports: Oral Surgery (dental extractons), Other (See Below) (left ear surgery) Social & Family History - Family History Family Medical History: Unobtainable - Caffeine Use Caffeine Use: Reports: None - Living Situation & Occupation Living situation: Reports: Single, Alone Occupation: Unemployed ED ROS GENERAL - Review of Systems Review Of Systems: See Below Constitutional: Reports: Malaise, Weakness, Fatigue, Decreased Appetite, Weight Loss. Denies: Fever, Chills HEENT: Reports: Glasses, Other (Patient is nonverbal. Clear etiology for this) Respiratory: Reports: No Symptoms Cardiovascular: Reports: No Symptoms Endocrine: Reports: Fatigue GI/Abdominal: Reports: Decreased Appetite. Denies: Diarrhea, Nausea, Vomiting : Reports: No Symptoms Musculoskeletal: Reports: No Symptoms Skin: Reports: No Symptoms Neurological: Reports: Headache, Weakness. Denies: Confusion, Dizziness, Pre- Existing Deficit, Trouble Speaking, Difficulty Walking Psychiatric: Reports: Anxiety, Depression Hematologic/Lymphatic: Reports: No Symptoms Immunologic: Reports: No Symptoms ED EXAM, GENERAL - Physical Exam Exam: See Below Exam Limited By: No Limitations General Appearance: Alert, WD/WN, Anxious, Mild Distress, Other (Temperature is 36.4 with a heart rate of 72. Respiratory is 18 O2 sats of 97% room air BP 11/07/1978.) Eye Exam: Bilateral Eye: Normal Inspection, PERRL Throat/Mouth: Other (Tongue is mildly dry and coated. Appears to be mildly volume depleted.) Head: Atraumatic, Normocephalic, Other Neck: Normal Inspection (No overt signs of any head or facial trauma.), Supple, Non-Tender, Full Range of Motion. No: Carotid Bruit, Lymphadenopathy (L), Lymphadenopathy (R) Respiratory/Chest: No Respiratory Distress, Lungs Clear, Normal Breath Sounds, No Accessory Muscle Use Cardiovascular: Normal Peripheral Pulses, Regular Rate, Rhythm, No Edema, No Gallop, No Murmur, No Rub Peripheral Pulses: 3+: Carotid (L), Carotid (R), Posterior Tibial (L), Posterior Tibial (R), Dorsalis Pedis (L), Dorsalis Pedis (R) GI/Abdominal: Normal Bowel Sounds, Soft, Non-Tender, No Organomegaly, No Mass, Pelvis Stable, Other (Male) Exam: No Hernia Extremities: Normal Inspection, Normal Range of Motion, Non-Tender, No Pedal Edema Neurological: Alert, Oriented, CN II-XII Intact, Normal Cognition, Other (Understands verbal communication but he prefers to write his answers down. Unclear why he is nonverbal or if this is congenital.) Psychiatric: Anxious Skin Exam: Warm, Dry, Intact, Normal Color, No Rash Course - Vital Signs Last Recorded V/S: Last Vital Signs Temp 36.4 C 07/08/20 18:19 Pulse 72 07/08/20 18:19 Resp 18 07/08/20 18:19 BP 123/79 07/08/20 18:19 Pulse Ox 97 07/08/20 18:19 - Orders/Labs/Meds Meds: Medications Discontinued Medications Generic Name Dose Route Start Last Admin Trade Name Freq PRN Reason Stop Dose Admin Fluoxetine HCl 60 mg 07/08/20 20:10 07/08/20 20:21 Prozac PO 07/08/20 20:11 60 mg ONETIME ONE Administration Quetiapine Fumarate 100 mg 07/08/20 20:10 07/08/20 20:21 Seroquel PO 07/08/20 20:11 100 mg ONETIME ONE Administration - Radiology Interpretation Free Text/Narrative:: 29-year-old male presents to the ED primarily for medication refill. He has been unable to get medications refilled through his primary care physician for the last 3 days. He usually takes Prozac 20 mg tablets x3 once daily every morning and Seroquel require atropine 100 mg at bedtime daily. He has a history of anxiety and chronic depression. He reports decrease in appetite and severe fatigue from not being able to sleep with an associated headache. Neuro exam was otherwise normal. Interestingly the patient is nonverbal and prefers to communicate by writing. He understands verbal communication. Plan he usually gets his medications filled at clinic pharmacy which is closed at this time. He will therefore be given 60 mg of Prozac by mouth now and Seroquel 100 mg now in the ED and fill prescriptions for medication tomorrow. He will follow-up with his primary care physician physician if any further problems occur. Departure - Departure Time of Disposition: 20:06 Disposition: Home, Self-Care 01 Condition: Fair Clinical Impression: Insomnia Qualifiers: Insomnia type: due to other mental disorder Qualified Code(s): F51.05 - Insomnia due to other mental disorder Major depression in partial remission Qualifiers: Major depression recurrence: recurrent Qualified Code(s): F33.41 - Major depressive disorder, recurrent, in partial remission - Discharge Information *PRESCRIPTION DRUG MONITORING PROGRAM REVIEWED*: Not Applicable *COPY OF PRESCRIPTION DRUG MONITORING REPORT IN PATIENT JONY: Not Applicable Prescriptions: FLUoxetine HCl [Prozac] 60 mg PO DAILY #90 capsule QUEtiapine Fumarate [Quetiapine Fumarate] 100 mg PO DAILY #30 tablet Instructions: Insomnia Referrals: PCP,None [Primary Care Provider] - Forms: ED Department Discharge Sepsis Event Note (ED) - Evaluation Sepsis Screening Result: No Definite Risk - Focused Exam Vital Signs: Vital Signs Temp Pulse Resp BP Pulse Ox 07/08/20 18:19 36.4 C 72 18 123/79 97
== END 2020-07-08 20:22 | disposition home or self-care (01) ==
LOC: JD.ED 17:48
DX: F51.05 Insomnia due to other mental disorder (principal); F33.41 Major depressive disorder, recurrent, in partial remission; Z76.0 Encounter for issue of repeat prescription; J45.909 Unspecified asthma, uncomplicated; Z79.899 Other long term (current) drug therapy
CPT/HCPCS: 99283; A9270; 99284

== ENCOUNTER 2020-12-02 12:19 | Emergency (ER) | payer MEDICAID ==
[2020-12-02] MEDS ORDERED: diphenhydrAMINE 50 MG/ML SDV IVPUSH ONE (12:39)
[2020-12-02] MEDS ORDERED: HYDROmorphone 0.5 MG/0.5 ML Syringe IVPUSH ONE (12:39)
[2020-12-02] MEDS ORDERED: Metoclopramide 10 MG/2 ML SDV IVPUSH ONE (12:39)
--- NOTE | 2020-12-02 12:41 | EDM.PDOC ---
ED HPI GENERAL MEDICAL PROBLEM - General Chief Complaint: Headache Stated Complaint: HEADACHE/ABD PAIN/VOMITING Time Seen by Provider: 12/02/20 12:34 Source of Information: Reports: Patient History Limitations: Reports: No Limitations - History of Present Illness INITIAL COMMENTS - FREE TEXT/NARRATIVE: 30-year-old male who does not speak but communicates by writing on a chalkboard presents to the ED complaining of a diffuse bad headache which he is prone to getting intermittently. Associated with the development of nausea and vomiting and clinically has signs and symptoms of migraine headache. Emesis has been bilious. He has not eaten at all today. Headache started last evening. No recent changes to any of his medications. Patient is on high-dose Seroquel. No neurological deficit identified as he walked back to his room. Cranial nerves II to XII intact. Onset: Unknown/Unsure (Symptoms started after he went to bed last night. He believes around midnight.) Onset Date: 12/02/20 Onset Time: 00:00 Duration: Hour(s):, Constant Location: Reports: Head (Use had pain particular both parietal and temporal scalp.), Abdomen (Nominal discomfort.), Other (Recurrent nausea and vomiting) Quality: Reports: Ache, Throbbing, Other Severity: Moderate (Stating pain in his head. 6 out of 10) Improves with: Reports: None Worsens with: Reports: Other (Trying to eat or drink.) Context: Reports: Other (Spontaneous occurrence during the night.). 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) (Thing will stay down.) Headache Pain Score (Numeric/FACES): 6 - Related Data Allergies Allergy/AdvReac Type Severity Reaction Status Date / Time No Known Allergies Allergy Verified 12/02/20 12:26 Home Meds: Home Meds FLUoxetine HCl [Fluoxetine HCl] 60 mg PO DAILY #30 tablet 03/31/20 [Rx] FLUoxetine HCl [Prozac] 60 mg PO DAILY #90 capsule 07/08/20 [Rx] QUEtiapine Fumarate [Quetiapine Fumarate] 100 mg PO DAILY #30 tablet 07/08/20 [Rx] Past Medical History HEENT History: Reports: Hard of Hearing (Deaf) Other HEENT History: left ear surgery she is extremely hard of hearing and lip reads a good portion of the time to communicate. Otherwise he communicates by writing on a slight or writing pad. Cardiovascular History: Reports: None Respiratory History: Reports: Asthma Gastrointestinal History: Reports: None Genitourinary History: Reports: None Musculoskeletal History: Reports: None Neurological History: Reports: Headaches, Chronic Other Neuro History: unable to get any other past history as if pt does not know what i mean-writing board communication. Psychiatric History: Reports: Depression, Psych Hospitalization(s), Suicidal Ideation Endocrine/Metabolic History: Reports: None Hematologic History: Reports: None Immunologic History: Reports: None Oncologic (Cancer) History: Reports: None Dermatologic History: Reports: None - Infectious Disease History Infectious Disease History: Reports: None - Past Surgical History HEENT Surgical History: Reports: Oral Surgery (dental extractons), Other (See Below) (left ear surgery) Social & Family History - Family History Family Medical History: Unobtainable - Caffeine Use Caffeine Use: Reports: None - Living Situation & Occupation Living situation: Reports: Single, Alone Occupation: Unemployed ED ROS GENERAL - Review of Systems Review Of Systems: See Below Constitutional: Reports: Weakness, Fatigue, Decreased Appetite. 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 He communicates by weight rating) General Appearance: Alert, WD/WN ( on a chalkboard), No Apparent Distress, Other (Temperature is 36.2 heart rate 89 to sinus respiratory is 22 with O2 sats of 98% BP 126/90) Eye Exam: Bilateral Eye: Normal Inspection, PERRL Ears: Other (Evidence of multiple surgeries to both ears. Severe scar tissue both tympanic membranes) Throat/Mouth: Normal Inspection, Normal Oropharynx (Tongue is mildly dry.), Other (Tongue is mildly dry. Lower lips are quite chapped.) Head Exam: Atraumatic, Normocephalic, Other Neck: Normal Inspection (No overt signs of any head or facial trauma), Supple, Non-Tender, Full Range of Motion. No: Lymphadenopathy (L), Lymphadenopathy (R) Respiratory/Chest: Lungs Clear (Mild tachypnea at rest. Mildly hyperventilating.), Normal Breath Sounds, No Accessory Muscle Use, Respiratory Distress Cardiovascular: Normal Peripheral Pulses, Regular Rate, Rhythm, No Edema, No Gallop, No Murmur, No Rub GI/Abdominal: No Organomegaly ( Concern for constipation identified.), Abnormal Bowel Sounds (Bowel sounds are very active in all 4 quadrants. The abdomen is distended and diffusely tympanic to percussion in the upper abdomen compatible with aerophagia. Very dull to percussion across the lower abdomen.). No: Rigid, Rebound, Tender Neuro Exam (Abbreviated): Alert, Oriented, CN II-XII Intact, Normal Cognition, No Motor/Sensory Deficits Back Exam: Normal Inspection, Full Range of Motion Extremities: Normal Inspection, Normal Range of Motion, Non-Tender Psychiatric: Other Skin Exam: Warm, Dry, Intact, Normal Color, No Rash Course - Vital Signs Text/Narrative:: 30-year-old with known psychiatric illness presents to the ED complaining of a diffuse severe headache which she is prone to getting once in a while. Associated development of nausea and vomiting. Appears to headache woke him up during the early hours of the morning and has persisted. Unable to eat at all today. Neuro exam is grossly normal. He communicates by way of writing down on a chalkboard. Currently rates his pain at a headache pain is 6 out of 10. Patient is on fairly high dose Seroquel. Plan given 7.5 mg of Reglan IV with 12.5 mg of Benadryl IV to prevent any extrapyramidal symptoms. Dilaudid 0.5 mg IV with Toradol 30 mg IV for headache relief. Last Recorded V/S: Last Vital Signs Temp 36.2 C 12/02/20 12:29 Pulse 89 12/02/20 12:29 Resp 22 H 12/02/20 12:29 BP 126/90 12/02/20 12:29 Pulse Ox 98 12/02/20 12:29 - Orders/Labs/Meds Meds: Medications Discontinued Medications Generic Name Dose Route Start Last Admin Trade Name Samara PRN Reason Stop Dose Admin Diphenhydramine HCl 12.5 mg 12/02/20 12:39 12/02/20 12:57 Benadryl IVPUSH 12/02/20 12:40 12.5 mg ONETIME ONE Administration Hydromorphone HCl 0.5 mg 12/02/20 12:39 12/02/20 12:59 Dilaudid IVPUSH 12/02/20 12:40 0.5 mg ONETIME ONE Administration Dextrose/Sodium Chloride 1,000 mls @ 999 mls/hr 12/02/20 12:45 12/02/20 13:01 Dextrose 5%-Normal Saline IV 999 mls/hr ASDIRECTED GAYLA Administration Ketorolac Tromethamine 30 mg 12/02/20 12:45 12/02/20 12:55 Toradol IVPUSH 30 mg ONETIME GAYLA Administration Metoclopramide HCl 7.5 mg 12/02/20 12:39 12/02/20 12:53 Reglan IVPUSH 12/02/20 12:40 7.5 mg ONETIME ONE Administration - Radiology Interpretation Free Text/Narrative:: 30-year-old male who is nonverbal due to being deaf and usually reads lips but impossible to do so with masks in place. He presents to the ED complaining of a diffuse headache primarily retro-ocular and parietal scalp bilaterally. He states he awoke with a headache and it developed sometime during the night. Began vomiting during the night and still vomiting this morning unable to keep anything down. Examination reveals neuro exam to be intact. We communicated by him writing on his slate and a writing pad. I noticed his abdomen to be distended and firm to palpation on examination. An x-ray of the abdomen will be obtained. In the meantime he will receive IV medications D5 normal saline at open with 12.5 mg of Bentyl, 7.5 mg of Reglan, Dilaudid 0.5 mg IV, and Toradol 30 mg IV. - Re-Assessments/Exams Free Text/Narrative Re-Assessment/Exam: 12/02/20 13:54 patient states his headache is completely gone and he is feeling good enough to go home. X-ray of the abdomen did show some mild constipation involving the descending colon with the remainder the colon being air-filled. Some of this is due to aerophagia. Constipation is likely secondary to medication Seroquel. That this time I did not offer him any treatment plan other than to purchase MiraLAX powder 17 g once daily to prevent constipation from occurring as need for Seroquel will be a chronic need. Departure - Departure Time of Disposition: 13:49 Disposition: Home, Self-Care 01 Condition: Fair Clinical Impression: Nausea and vomiting in adult, Constipation by delayed colonic transit Migraine headache Qualifiers: Migraine type: without aura Status migrainosus presence: without status migrainosus Intractability: not intractable Qualified Code(s): G43.009 - Migraine without aura, not intractable, without status migrainosus - Discharge Information *PRESCRIPTION DRUG MONITORING PROGRAM REVIEWED*: Not Applicable *COPY OF PRESCRIPTION DRUG MONITORING REPORT IN PATIENT JONY: Not Applicable Instructions: Recurrent Migraine Headache, Nausea and Vomiting, Adult Referrals: PCP,None [Primary Care Provider] - Forms: ED Department Discharge Additional Instructions: Evaluation in the emergency room today in regards to development of a headache during the night which was associate with the development of nausea and vomiting this morning. Headache characteristic of migraine headaches which you have experienced in the past. Also appreciated diffuse abdominal bloating and distention on examination. You were treated with IV fluids and medications Dilaudid, Toradol, Reglan, and Benadryl, for headache and nausea relief. This gave you good relief of the migraine headache. X-ray of the abdomen shows mild constipation involving the left hemicolon otherwise distended with a lot of air. Some with this area is from swallowing air and has to work its way through the colon. Mild constipation is secondary to medication you take Seroquel which is highly constipating. If this is a problem for you you may need to take a stool softener such as MiraLAX powder 17 g or 1 scoop daily to prevent constipation from occurring. Follow-up with personal care provider if any further problems occur. Sepsis Event Note (ED) - Evaluation Sepsis Screening Result: No Definite Risk - Focused Exam Vital Signs: Vital Signs Temp Pulse Resp BP Pulse Ox 12/02/20 12:29 36.2 C 89 22 H 126/90 98
[2020-12-02] MEDS ORDERED: Ketorolac 30 MG/ML SDV IVPUSH SCH (12:45)
[2020-12-02] MEDS ORDERED: Dextrose 5%-0.9% NaCl 1,000 ML IV SCH (12:45)
--- NOTE | 2020-12-02 13:34 | CR ---
Abdomen: Supine view of the abdomen was obtained. Comparison: Prior abdominal x-ray of 03/31/20. Bowel gas pattern appears normal. No abnormal calcifications or soft tissue abnormality is seen. Bony structures appear within normal limits for the patient's age. Impression: 1. Nothing acute is seen on supine abdominal x-ray. Diagnostic code #1
== END 2020-12-02 14:19 | disposition home or self-care (01) ==
LOC: JD.ED 12:19
DX: G43.009 Migraine without aura, not intractable, without status migrainosus (principal); K59.01 Slow transit constipation; J45.909 Unspecified asthma, uncomplicated; Z79.899 Other long term (current) drug therapy
CPT/HCPCS: 74018; 96374; 96375; 99284; J1170; J1200; J1885; J2765; J7042

== ENCOUNTER 2020-12-03 16:19 | Emergency (ER) | payer MEDICAID ==
[2020-12-03] MEDS ORDERED: Sodium Chloride 0.9% 10 ML Syringe FLUSH PRN (17:51)
[2020-12-03] MEDS ORDERED: Metoclopramide 10 MG/2 ML SDV IVPUSH ONE (17:52)
[2020-12-03] MEDS ORDERED: Ketorolac 30 MG/ML SDV IVPUSH ONE (17:52)
[2020-12-03] MEDS ORDERED: Sodium Chloride 0.9% 1,000 ML IV ONE ×2 (17:52→19:42)
[2020-12-03] MEDS ORDERED: diphenhydrAMINE 50 MG/ML SDV IVPUSH ONE (17:53)
--- NOTE | 2020-12-03 17:54 | EDM.PDOC ---
ED HPI GENERAL MEDICAL PROBLEM - General Chief Complaint: Gastrointestinal Problem Stated Complaint: VOMITING AND DIRRHEA NOT BETTER Time Seen by Provider: 12/03/20 17:32 Source of Information: Reports: Patient History Limitations: Reports: No Limitations - History of Present Illness INITIAL COMMENTS - FREE TEXT/NARRATIVE: [age]-year-old male with complaints of nausea, vomiting, diarrhea, runny nose, headaches, abdominal pain and bladder pain. Patient was seen and treated in the ER yesterday with similar complaints however he had a severe headache. He does have a known history of migraine headaches and a's history of mental illness. He takes high-dose Seroquel for this. Patient states he has had 10 loose stools in the past 2 days he also has been traveling recently to [place], [place] and [place]. Questioning Covid. Has denied any fever and chills for me. Is hard to get a thorough history from this patient as he is deaf and mute and he reads lips which is hard to do with the masks in place so he has been communicating via tablet. Abdomen Pain Score (Numeric/FACES): 6 - Related Data Allergies Allergy/AdvReac Type Severity Reaction Status Date / Time No Known Allergies Allergy Verified 12/03/20 16:37 Home Meds: Home Meds FLUoxetine HCl [Prozac] 60 mg PO DAILY #90 capsule 07/08/20 [Rx] QUEtiapine Fumarate [Quetiapine Fumarate] 100 mg PO BEDTIME 12/03/20 [History] Past Medical History HEENT History: Reports: Hard of Hearing Other HEENT History: left ear surgery she is extremely hard of hearing and lip reads a good portion of the time to communicate. Otherwise he communicates by writing on a slight or writing pad. Cardiovascular History: Reports: None Respiratory History: Reports: Asthma Gastrointestinal History: Reports: None Genitourinary History: Reports: None Musculoskeletal History: Reports: None Neurological History: Reports: Headaches, Chronic Other Neuro History: unable to get any other past history as if pt does not know what i mean-writing board communication. Psychiatric History: Reports: Depression, Psych Hospitalization(s), Suicidal Ideation Endocrine/Metabolic History: Reports: None Hematologic History: Reports: None Immunologic History: Reports: None Oncologic (Cancer) History: Reports: None Dermatologic History: Reports: None - Infectious Disease History Infectious Disease History: Reports: None - Past Surgical History HEENT Surgical History: Reports: Oral Surgery, Other (See Below) Other HEENT Surgeries/Procedures: Pt does not have any teeth, has had oral and ear surgeries in the past. Social & Family History - Family History Family Medical History: Unobtainable - Tobacco Use Tobacco Use Status *Q: Never Tobacco User Second Hand Smoke Exposure: No - Caffeine Use Caffeine Use: Reports: None - Recreational Drug Use Recreational Drug Use: No - Living Situation & Occupation Living situation: Reports: Single, Alone Occupation: Unemployed ED ROS GENERAL - Review of Systems Review Of Systems: See Below Constitutional: Reports: Fever, Chills. Denies: Diaphoresis, Decreased Appetite HEENT: Reports: Glasses Respiratory: Reports: Cough. Denies: Sputum Cardiovascular: Reports: No Symptoms Endocrine: Reports: No Symptoms GI/Abdominal: Reports: Abdominal Pain, Diarrhea (Generalized), Nausea, Vomiting : Reports: Dysuria Musculoskeletal: Reports: No Symptoms Skin: Reports: Pallor Neurological: Reports: Headache Psychiatric: Reports: No Symptoms Hematologic/Lymphatic: Reports: No Symptoms Immunologic: Reports: No Symptoms ED EXAM, GI/ABD - Physical Exam Exam: See Below Exam Limited By: No Limitations General Appearance: Alert, WD/WN, No Apparent Distress Ears: No: Hearing Grossly Normal (Patient is deaf) Nose: Normal Inspection Throat/Mouth: Normal Inspection, No Airway Compromise. No: Normal Voice (And is mute) Head: Atraumatic, Normocephalic Neck: Normal Inspection, Supple, Non-Tender, Full Range of Motion Respiratory/Chest: No Respiratory Distress, Lungs Clear, Normal Breath Sounds, No Accessory Muscle Use, Chest Non-Tender Cardiovascular: Normal Peripheral Pulses, Regular Rate, Rhythm, No Edema, No Murmur GI/Abdominal Exam: Normal Bowel Sounds, Soft, Tender (In all 4 quadrants with palpation) (Male) Exam: Deferred Rectal (Males) Exam: Deferred Back Exam: Normal Inspection, Full Range of Motion Extremities: Normal Inspection, Normal Range of Motion, Non-Tender, No Pedal Edema, Normal Capillary Refill Neurological: Alert, Oriented, Normal Cognition Psychiatric: Normal Affect, Normal Mood Skin Exam: Warm, Dry, Intact, No Rash, Pallor Lymphatic: No Adenopathy Course - Vital Signs Text/Narrative:: 30-year-old male with a 2-day history of nausea, vomiting, diarrhea, abdominal pain, bladder pain and runny nose. He was seen and treated in the ER yesterday however no lab work was completed. Upon assessment patient's lung sounds are clear. Abdomen is tender in all quadrants with palpation. And he is nauseated. I have ordered routine labs we will also get a stool sample on him. We will give him a liter of IV fluids and nausea medication as he is likely dehydrated due to vomiting and diarrhea. I will also get him some pain medication for his headache. Last Recorded V/S: Last Vital Signs Temp 97.8 F 12/03/20 16:30 Pulse 85 12/03/20 22:14 Resp 16 12/03/20 22:14 BP 130/83 12/03/20 16:30 Pulse Ox 98 12/03/20 22:14 - Orders/Labs/Meds Orders: Active Orders 24 hr Category Date Time Status KUB [Abdomen 1V Flat] [CR] Stat Exams 12/03/20 21:26 Taken CORONAVIRUS COVID-19 PCR PHL Stat Lab 12/03/20 18:23 Received CULTURE URINE [RM] Stat Lab 12/03/20 19:32 Received STOOL CULTURE/SHIGA TOXIN [MREF] Stat Lab 12/03/20 19:32 Received Potassium Chloride [KCl in Water 10 MEQ/100 ML] 10 meq Med 12/03/20 18:45 Active Premix Bag 1 bag IV Q1H Sodium Chloride 0.9% [Normal Saline] 1,000 ml Med 12/03/20 19:42 Active IV ONETIME Sodium Chloride 0.9% [Saline Flush] Med 12/03/20 17:51 Active 10 ml FLUSH ASDIRECTED PRN Saline Lock Insert [OM.PC] Stat Oth 12/03/20 17:51 Ordered Medication Orders Potassium Chloride 10 meq/ (Premix) 100 mls @ 100 mls/hr IV Q1H GAYLA Stop: 12/03/20 22:44 Last Admin: 12/03/20 20:30 Dose: 100 mls/hr Documented by: Infusion: 12/03/20 20:06 Dose: 100 mls/hr Documented by: Admin: 12/03/20 19:06 Dose: 100 mls/hr Documented by: TREE Sodium Chloride (Normal Saline) 1,000 mls @ 250 mls/hr IV ONETIME ONE Stop: 12/03/20 23:41 Last Admin: 12/03/20 20:20 Dose: 250 mls/hr Documented by: ZIGGY Sodium Chloride (Saline Flush) 10 ml FLUSH ASDIRECTED PRN PRN Reason: Keep Vein Open Last Admin: 12/03/20 18:17 Dose: 10 ml Documented by: TREE Labs: Laboratory Tests 12/03/20 12/03/20 12/03/20 Range/Units 18:03 18:03 19:32 WBC 5.27 (4.23-9.07) K/mm3 RBC 4.99 (4.63-6.08) M/mm3 Hgb 14.7 (13.7-17.5) gm/dl Hct 41.9 (40.1-51.0) % MCV 84.0 (79.0-92.2) fl MCH 29.5 (25.7-32.2) pg MCHC 35.1 (32.2-35.5) g/dl RDW Std Deviation 38.0 (35.1-43.9) fL Plt Count 172 (163-337) K/mm3 MPV 10.7 (9.4-12.3) fl Neut % (Auto) 75.4 H (34.0-67.9) % Lymph % (Auto) 14.2 L (21.8-53.1) % [place] % (Auto) 8.7 (5.3-12.2) % Eos % (Auto) 1.3 (0.8-7.0) Baso % (Auto) 0.2 (0.1-1.2) % Neut # (Auto) 3.97 (1.78-5.38) K/mm3 Lymph # (Auto) 0.75 L (1.32-3.57) K/mm3 [place] # (Auto) 0.46 (0.30-0.82) K/mm3 Eos # (Auto) 0.07 (0.04-0.54) K/mm3 Baso # (Auto) 0.01 (0.01-0.08) K/mm3 Sodium 142 (136-145) mEq/L Potassium 2.8 L (3.5-5.1) mEq/L Chloride 101 (98-107) mEq/L Carbon Dioxide 27 (21-32) mEq/L Anion Gap 16.8 H (5-15) BUN 10 (7-18) mg/dL Creatinine 1.0 (0.7-1.3) mg/dL Est Cr Clr Drug Dosing TNP Estimated GFR (MDRD) > 60 (>60) mL/min BUN/Creatinine Ratio 10.0 L (14-18) Glucose 98 (74-106) mg/dL Calcium 8.6 (8.5-10.1) mg/dL Magnesium 1.8 (1.8-2.4) mg/dl Total Bilirubin 3.9 H (0.2-1.0) mg/dL AST 36 (15-37) U/L ALT 73 H (16-63) U/L Alkaline Phosphatase 108 (46-116) U/L C-Reactive Protein 9.5 H* (<1.0) mg/dL Total Protein 7.6 (6.4-8.2) g/dl Albumin 3.6 (3.4-5.0) g/dl Globulin 4.0 gm/dL Albumin/Globulin Ratio 0.9 L (1-2) Urine Color Yellow (Yellow) Urine Appearance Clear (Clear) Urine pH 7.0 (5.0-8.0) Ur Specific [place] 1.015 (1.005-1.030) Urine Protein Negative (Negative) Urine Glucose (UA) Negative (Negative) Urine Ketones Negative (Negative) Urine Occult Blood Negative (Negative) Urine Nitrite Negative (Negative) Urine Bilirubin Negative (Negative) Urine Urobilinogen 1.0 (0.2-1.0) Ur Leukocyte Esterase Trace H (Negative) Urine RBC 0-5 (0-5) /hpf Urine WBC 0-5 (0-5) /hpf Ur Squamous Epith Cells 0-5 (0-5) /hpf Urine Bacteria Few (FEW) /hpf Urine Mucus Few (FEW) /hpf Meds: Medications Generic Name Dose Route Start Last Admin Trade Name Freq PRN Reason Stop Dose Admin Potassium Chloride 10 meq/ 100 mls @ 100 mls/hr 12/03/20 18:45 12/03/20 20:30 Premix IV 12/03/20 22:44 100 mls/hr Q1H GAYLA Administration Sodium Chloride 1,000 mls @ 250 mls/hr 12/03/20 19:42 12/03/20 20:20 Normal Saline IV 12/03/20 23:41 250 mls/hr ONETIME ONE Administration Sodium Chloride 10 ml 12/03/20 17:51 12/03/20 18:17 Saline Flush FLUSH 10 ml ASDIRECTED PRN Administration Keep Vein Open Discontinued Medications Generic Name Dose Route Start Last Admin Trade Name Samara PRN Reason Stop Dose Admin Diphenhydramine HCl 25 mg 12/03/20 17:53 12/03/20 18:15 Benadryl IVPUSH 12/03/20 17:54 25 mg ONETIME ONE Administration Sodium Chloride 1,000 mls @ 999 mls/hr 12/03/20 17:52 12/03/20 18:12 Normal Saline IV 12/03/20 18:52 999 mls/hr ONETIME ONE Administration Ketorolac Tromethamine 30 mg 12/03/20 17:52 12/03/20 18:13 Toradol IVPUSH 12/03/20 17:53 30 mg ONETIME ONE Administration Metoclopramide HCl 5 mg 12/03/20 17:52 12/03/20 18:14 Reglan IVPUSH 12/03/20 17:53 5 mg ONETIME ONE Administration - Radiology Interpretation Free Text/Narrative:: Nothing acute is appreciated on abdominal x ray. Xray compared to previous xray taken yesterday. - Re-Assessments/Exams Free Text/Narrative Re-Assessment/Exam: 12/03/20 18:53 Labs reveal a WBC of 5.27, hemoglobin 14.7, hematocrit 41.9, sodium 142, potassium 2.8, anion gap 16.8, BUN 10, creatinine 1.0, glucose 98, magnesium 1.8, total bilirubin 3.9, AST 36, ALT 73, alk phos 108, C-reactive protein 9.5, I have ordered for the patient to receive 40 mEq of potassium IV as I do not think he will tolerate p.o. at this time. 12/03/20 19:42 Patient's first liter of normal saline has infused. He is slightly dehydrated so I will order a second liter as he is also complaining of the potassium infusion burning. 12/03/20 20:31 Urinalysis reveals a trace of leuk esterase, urine WBCs are 0-5. 12/03/20 22:19 Pt will be discharged to home once his potassium infusion is complete. The covid test was sent out to the state and they will notify him of the results. Results are pending regarding stool studies. These likely will not be back before the patient is discharged. Departure - Departure Time of Disposition: 23:15 Disposition: Home, Self-Care 01 Condition: Fair Clinical Impression: Hypokalemia, Gastroenteritis, Nausea and vomiting in adult - Discharge Information Instructions: Hypokalemia, Nausea and Vomiting, Adult, [id number], Diarrhea, Adult, [id number] Referrals: PCP,None [Primary Care Provider] - Forms: ED Department Discharge Additional Instructions: You were seen in the ED today with complaints of nausea, vomiting, diarrhea, headache, and generalized abdominal pain. Lab work was completed and you were low on potassium. This is likely due to diarrhea and vomiting. There was not evidence of infection. Xray showed gas and was otherwise unremarkable. You received pain medications, nausea medication, IV fluids and potassium in your IV. You can go home and rest. Drink only clear liquids like gatorade, broth, water, etc for the next 24 hours and then advance your diet to bland foods like toast, crackers, applesauce, rice etc. You likely have gastroenteritis which is a virus and the only treatment is time and rest to get over it. Should your condition worsen, or change, please return to the emergency department. Sepsis Event Note (ED) - Evaluation Sepsis Screening Result: No Definite Risk - Focused Exam Vital Signs: Vital Signs Temp Pulse Resp BP Pulse Ox 12/03/20 22:14 85 16 98 12/03/20 16:30 97.8 F 100 18 130/83 99 - My Orders Last 24 Hours: My Active Orders 12/03/20 17:51 Sodium Chloride 0.9% [Saline Flush] 10 ml FLUSH ASDIRECTED PRN Saline Lock Insert [OM.PC] Stat 12/03/20 18:23 CORONAVIRUS COVID-19 PCR PHL Stat 12/03/20 18:45 Potassium Chloride [KCl in Water 10 MEQ/100 ML] 10 meq Premix Bag 1 bag IV Q1H 12/03/20 19:32 CULTURE URINE [RM] Stat STOOL CULTURE/SHIGA TOXIN [MREF] Stat 12/03/20 19:42 Sodium Chloride 0.9% [Normal Saline] 1,000 ml IV ONETIME 12/03/20 21:26 KUB [Abdomen 1V Flat] [CR] Stat - Assessment/Plan Last 24 Hours: My Active Orders 12/03/20 17:51 Sodium Chloride 0.9% [Saline Flush] 10 ml FLUSH ASDIRECTED PRN Saline Lock Insert [OM.PC] Stat 12/03/20 18:23 CORONAVIRUS COVID-19 PCR PHL Stat 12/03/20 18:45 Potassium Chloride [KCl in Water 10 MEQ/100 ML] 10 meq Premix Bag 1 bag IV Q1H 12/03/20 19:32 CULTURE URINE [RM] Stat STOOL CULTURE/SHIGA TOXIN [MREF] Stat 12/03/20 19:42 Sodium Chloride 0.9% [Normal Saline] 1,000 ml IV ONETIME 12/03/20 21:26 KUB [Abdomen 1V Flat] [CR] Stat
[2020-12-03] MEDS: Potassium Chloride 10 MEQ in Premix Bag 1 BAG IV SCH ×4 (19:06→23:21)
--- NOTE | 2020-12-04 07:48 | CR ---
Abdomen: Supine view of the abdomen was obtained. Comparison: Prior abdominal x-ray of 12/02/20. Bowel gas pattern appears normal. No abnormal calcifications or soft tissue abnormality is seen. Bony structures are unremarkable. Impression: 1. Nothing acute is seen on supine abdominal x-ray. Diagnostic code #1
== END 2020-12-03 23:27 | disposition home or self-care (01) ==
LOC: JD.ED 16:19
DX: E87.6 Hypokalemia (principal); K52.9 Noninfective gastroenteritis and colitis, unspecified; R11.2 Nausea with vomiting, unspecified; J45.909 Unspecified asthma, uncomplicated; Z79.899 Other long term (current) drug therapy; Z20.822 Contact with and (suspected) exposure to COVID-19
CPT/HCPCS: 36415; 74018; 80053; 81001; 83735; 85025; 86140; 87045; 87046; 87086; 87635; 87899; 96365; 96366; 96375; 99284; J1200; J1885; J2765; J3480; J7030; U0002

== ENCOUNTER 2021-01-06 16:21 | Emergency (ER) | payer MEDICAID ==
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
[2021-01-06] MEDS: Potassium Chloride 20 MEQ Tab.ER PO ONE (18:15)
== END 2021-01-06 18:13 | disposition home or self-care (01) ==
LOC: JD.ED 16:21
DX: E83.42 Hypomagnesemia (principal); E87.6 Hypokalemia; J45.909 Unspecified asthma, uncomplicated; Z79.899 Other long term (current) drug therapy
CPT/HCPCS: 36415; 80053; 83735; 85025; 99283; 99284; A9270-GY

== ENCOUNTER 2021-03-13 17:13 | Emergency (ER) | payer MEDICAID ==
[2021-03-13] MEDS ORDERED: Ketorolac 30 MG/ML SDV IVPUSH ONE (17:42)
[2021-03-13] MEDS ORDERED: Sodium Chloride 0.9% 10 ML Syringe FLUSH PRN (17:42)
[2021-03-13] MEDS ORDERED: Metoclopramide 10 MG/2 ML SDV IVPUSH ONE (17:42)
[2021-03-13] MEDS ORDERED: diphenhydrAMINE 50 MG/ML SDV IVPUSH ONE (17:42)
--- NOTE | 2021-03-13 18:20 | EDM.PDOC ---
ED HPI GENERAL MEDICAL PROBLEM - General Chief Complaint: Headache Stated Complaint: HEADACHE Time Seen by Provider: 03/13/21 17:31 Source of Information: Reports: Patient History Limitations: Reports: No Limitations - History of Present Illness INITIAL COMMENTS - FREE TEXT/NARRATIVE: The patient presents with a left sided headache. This started at 7am. He has a history of headaches in the past. He has no numbness or weakness. He has no fever, chills, cough, chest pain or shortness of breath. Onset: Gradual Duration: Hour(s): Location: Reports: Head Quality: Reports: Ache Severity: Moderate Improves with: Reports: None Worsens with: Reports: None Associated Symptoms: Reports: Headaches. Denies: Chest Pain, Cough, Fever/Chills, Nausea/Vomiting, Shortness of Breath Headache Pain Score (Numeric/FACES): 8 - Related Data Allergies Allergy/AdvReac Type Severity Reaction Status Date / Time No Known Allergies Allergy Verified 03/13/21 17:21 Home Meds: Home Meds QUEtiapine Fumarate [Quetiapine Fumarate] 100 mg PO BEDTIME 12/03/20 [History] FLUoxetine HCl [Fluoxetine HCl] 100 mg PO TID 01/06/21 [History] Magnesium Chloride [Slow-Mag] 71.5 mg PO DAILY #7 tablet. 01/06/21 [Rx] Past Medical History HEENT History: Reports: Hard of Hearing Other HEENT History: left ear surgery; communicates with pen and paper Cardiovascular History: Reports: None Respiratory History: Reports: Asthma Gastrointestinal History: Reports: None Genitourinary History: Reports: None Musculoskeletal History: Reports: None Neurological History: Reports: Headaches, Chronic Other Neuro History: unable to get any other past history as if pt does not know what i mean-writing board communication. Psychiatric History: Reports: Depression, Psych Hospitalization(s), Suicidal Ideation Endocrine/Metabolic History: Reports: None Hematologic History: Reports: None Immunologic History: Reports: None Oncologic (Cancer) History: Reports: None Dermatologic History: Reports: None - Infectious Disease History Infectious Disease History: Reports: None - Past Surgical History HEENT Surgical History: Reports: Oral Surgery, Other (See Below) Other HEENT Surgeries/Procedures: Pt does not have any teeth, has had oral and ear surgeries in the past. Social & Family History - Family History Family Medical History: Unobtainable Cardiac: Reports: None Respiratory: Reports: None GI: Reports: None : Reports: None OBGYN: Reports: None Musculoskeletal: Reports: None - Tobacco Use Tobacco Use Status *Q: Never Tobacco User - Caffeine Use Caffeine Use: Reports: Energy Drinks, Soda - Recreational Drug Use Recreational Drug Use: No - Living Situation & Occupation Living situation: Reports: Single, Alone Occupation: Unemployed ED ROS GENERAL - Review of Systems Review Of Systems: See Below Constitutional: Reports: No Symptoms HEENT: Reports: No Symptoms Respiratory: Reports: No Symptoms Cardiovascular: Reports: No Symptoms Endocrine: Reports: No Symptoms GI/Abdominal: Reports: No Symptoms : Reports: No Symptoms Musculoskeletal: Reports: No Symptoms Neurological: Reports: Headache - Physical Exam Exam: See Below Exam Limited By: No Limitations General Appearance: Alert, No Apparent Distress Ears: Normal External Exam Nose: Normal Inspection Head Exam: Atraumatic, Normocephalic Neck: Normal Inspection Respiratory/Chest: No Respiratory Distress, Lungs Clear, Normal Breath Sounds Cardiovascular: Regular Rate, Rhythm, No Edema, No Murmur GI/Abdominal: Soft, Non-Tender, No Organomegaly Neuro Exam (Abbreviated): Alert, Oriented, No Motor/Sensory Deficits Course - Vital Signs Last Recorded V/S: Last Vital Signs Temp 97.2 F 03/13/21 17:25 Pulse 74 03/13/21 17:25 Resp 18 03/13/21 17:25 BP 136/91 H 03/13/21 17:25 Pulse Ox 97 03/13/21 17:25 - Orders/Labs/Meds Orders: Active Orders 24 hr Category Date Time Status Peripheral IV Care [RC] . DIRECTED Care 03/13/21 17:42 Active Head wo Cont [CT] Stat Exams 03/13/21 17:41 Taken Sodium Chloride 0.9% [Saline Flush] Med 03/13/21 17:42 Active 10 ml FLUSH ASDIRECTED PRN Peripheral IV Insertion Adult [OM.PC] Routine Oth 03/13/21 17:42 Ordered Medication Orders Sodium Chloride (Sodium Chloride 0.9% 10 Ml Syringe) 10 ml FLUSH ASDIRECTED PRN PRN Reason: Keep Vein Open Last Admin: 03/13/21 17:53 Dose: 10 ml Documented by: KATELYNN Meds: Medications Generic Name Dose Route Start Last Admin Trade Name Freq PRN Reason Stop Dose Admin Sodium Chloride 10 ml 03/13/21 17:42 03/13/21 17:53 Sodium Chloride 0.9% 10 Ml Syringe FLUSH 10 ml ASDIRECTED PRN Administration Keep Vein Open Discontinued Medications Generic Name Dose Route Start Last Admin Trade Name Jakeq PRN Reason Stop Dose Admin Diphenhydramine HCl 50 mg 03/13/21 17:42 03/13/21 17:53 Diphenhydramine 50 Mg/Ml Sdv IVPUSH 03/13/21 17:43 50 mg ONETIME ONE Administration Ketorolac Tromethamine 30 mg 03/13/21 17:42 03/13/21 17:52 Ketorolac 30 Mg/Ml Sdv IVPUSH 03/13/21 17:43 30 mg ONETIME ONE Administration Metoclopramide HCl 10 mg 03/13/21 17:42 03/13/21 17:54 Metoclopramide 10 Mg/2 Ml Sdv IVPUSH 03/13/21 17:43 10 mg ONETIME ONE Administration - Re-Assessments/Exams Free Text/Narrative Re-Assessment/Exam: 03/13/21 18:20 I ordered an IV saline lock, reglan 10mg IV, benadryl 50mg IV, toradol 30mg IV and a CT of his head. 03/13/21 18:[address] of his head looks good. He feels better. I will discharge him home. Departure - Departure Time of Disposition: 18:40 Disposition: Home, Self-Care 01 Condition: Good Clinical Impression: Headache Qualifiers: Headache type: unspecified Headache chronicity pattern: acute headache Intractability: not intractable Qualified Code(s): R51 - Headache - Discharge Information *PRESCRIPTION DRUG MONITORING PROGRAM REVIEWED*: Not Applicable *COPY OF PRESCRIPTION DRUG MONITORING REPORT IN PATIENT JONY: Not Applicable Referrals: Vega Aj NP [Primary Care Provider] - 1 Week Forms: ED Department Discharge Additional Instructions: Go home and rest. Drink plenty of fluids. Follow up with your provider this week. Please return if you are worse. Sepsis Event Note (ED) - Evaluation Sepsis Screening Result: No Definite Risk - Focused Exam Vital Signs: Vital Signs Temp Pulse Resp BP Pulse Ox 03/13/21 17:25 97.2 F 74 18 136/91 H 97 - My Orders Last 24 Hours: My Active Orders 03/13/21 17:41 Head wo Cont [CT] Stat 03/13/21 17:42 Peripheral IV Care [RC] . DIRECTED Sodium Chloride 0.9% [Saline Flush] 10 ml FLUSH ASDIRECTED PRN Peripheral IV Insertion Adult [OM.PC] Routine - Assessment/Plan Last 24 Hours: My Active Orders 03/13/21 17:41 Head wo Cont [CT] Stat 03/13/21 17:42 Peripheral IV Care [RC] . DIRECTED Sodium Chloride 0.9% [Saline Flush] 10 ml FLUSH ASDIRECTED PRN Peripheral IV Insertion Adult [OM.PC] Routine
--- NOTE | 2021-03-14 18:17 | CT ---
Head CT Technique: Multiple axial sections through the brain were obtained. Intravenous contrast was not utilized. Reconstructed coronal and sagittal images were also obtained. Comparison: No prior intracranial imaging is available. Findings: Ventricles along with basal cisterns and sulci over the convexities are within normal limits for the patient's age. No abnormal parenchymal densities are seen. No evidence of intracranial hemorrhage. No midline shift or mass-effect is seen. Bone window settings were reviewed which show no acute osseous abnormality. There is fairly prominent mucosal thickening within the ethmoid and frontal sinuses as well as sphenoid sinus. Impression: 1. Mucosal thickening within the paranasal sinuses as noted above. This is most likely chronic. Please correlate. 2. Nothing acute is otherwise seen on noncontrast head CT exam. Diagnostic code #3 I agree with preliminary report from [facility], finalized on 03/13/21, 7:30 PM CDT, code 1
== END 2021-03-13 18:50 | disposition home or self-care (01) ==
LOC: JD.ED 17:13
DX: R51.9 Headache, unspecified (principal)
CPT/HCPCS: 70450; 96374; 96375; 99284; J1200; J1885; J2765

== ENCOUNTER 2021-03-24 08:35 | Emergency (ER) | payer MEDICAID ==
[2021-03-24] MEDS ORDERED: Sodium Chloride 0.9% 10 ML Syringe FLUSH PRN (08:57)
[2021-03-24] MEDS ORDERED: Metoclopramide 10 MG/2 ML SDV IVPUSH ONE (08:59)
[2021-03-24] MEDS ORDERED: diphenhydrAMINE 50 MG/ML SDV IVPUSH ONE (08:59)
[2021-03-24] MEDS ORDERED: Ketorolac 30 MG/ML SDV IVPUSH ONE (08:59)
[2021-03-24] MEDS ORDERED: Sodium Chloride 0.9% 1,000 ML IV ONE (08:59)
--- NOTE | 2021-03-24 09:08 | EDM.PDOC ---
ED HPI GENERAL MEDICAL PROBLEM - General Chief Complaint: General Stated Complaint: [facility] Time Seen by Provider: 03/24/21 08:41 Source of Information: Reports: Patient History Limitations: Reports: Other - History of Present Illness INITIAL COMMENTS - FREE TEXT/NARRATIVE: 30-year-old male presents to the emergency department with complaints of shortness of breath, wheezing, migraine headache, fever, and diarrhea. The patient is known to this emergency department and has frequent ER visits. He is deaf however he is able to read lips however at this time is unable to due to wearing masks. He communicates via a notepad. Patient states that over the course of the past 2 days he has developed shortness of breath and a nonproductive cough. He is also had wheezing. He reports having a history of asthma however he does not use any asthma type medications. He denies smoking ever in his life. He denies any recreational drug use. He does have a history of migraine and states this started about 2 days ago headache pain is primarily ocular and temporal. He does admit to having some blurred vision however no double vision or floaters. States he has had fever over the past couple of days however denies chills. He is unable to tell me what his temperature has been because he has not taken it. He also complains of diarrhea however on his last ER visit when I saw him back in November that was his chief complaint and we did do a full work-up with stool studies and these all came back negative so I suspect this is his norm. He denies any abdominal pain or cramping. Complains of some discomfort in his right leg. The patient does have a history of mental health issues and he does admit that he is still taking his Seroquel and Zoloft as prescribed. His primary care provider is Norah Gupta NP. Headache Pain Score (Numeric/FACES): 4 - Related Data Allergies Allergy/AdvReac Type Severity Reaction Status Date / Time No Known Allergies Allergy Verified 03/24/21 08:43 Home Meds: Home Meds QUEtiapine Fumarate [Quetiapine Fumarate] 100 mg PO BEDTIME 12/03/20 [History] FLUoxetine HCl [Fluoxetine HCl] 100 mg PO TID 01/06/21 [History] Magnesium Chloride [Slow-Mag] 71.5 mg PO DAILY #7 tablet. 01/06/21 [Rx] Amoxicillin 1,000 mg PO TID #28 tab 03/24/21 [Rx] Past Medical History HEENT History: Reports: Hard of Hearing Other HEENT History: left ear surgery; communicates with pen and paper Cardiovascular History: Reports: None Respiratory History: Reports: Asthma Gastrointestinal History: Reports: None Genitourinary History: Reports: None Musculoskeletal History: Reports: None Neurological History: Reports: Headaches, Chronic Other Neuro History: unable to get any other past history as if pt does not know what i mean-writing board communication. Psychiatric History: Reports: Depression, Psych Hospitalization(s), Suicidal Ideation Endocrine/Metabolic History: Reports: None Hematologic History: Reports: None Immunologic History: Reports: None Oncologic (Cancer) History: Reports: None Dermatologic History: Reports: None - Infectious Disease History Infectious Disease History: Reports: None - Past Surgical History HEENT Surgical History: Reports: Oral Surgery, Other (See Below) Other HEENT Surgeries/Procedures: Pt does not have any teeth, has had oral and ear surgeries in the past. Social & Family History - Family History Family Medical History: Unobtainable Cardiac: Reports: None Respiratory: Reports: None GI: Reports: None : Reports: None OBGYN: Reports: None Musculoskeletal: Reports: None - Tobacco Use Tobacco Use Status *Q: Never Tobacco User - Caffeine Use Caffeine Use: Reports: Energy Drinks, Soda - Living Situation & Occupation Living situation: Reports: Single, Alone Occupation: Unemployed ED ROS GENERAL - Review of Systems Review Of Systems: Comprehensive ROS is negative, except as noted in HPI. ED EXAM, GENERAL - Physical Exam Exam: See Below Exam Limited By: Other (Patient is deaf and does read lips however with the requirement of wearing masks he communicates using a note pad and paper) General Appearance: Alert, WD/WN, Mild Distress Eye Exam: Bilateral Eye: PERRL Ears: Normal External Exam, Other (pt is deaf) Nose: Normal Inspection Throat/Mouth: Normal Inspection, Normal Lips, No Airway Compromise. No: Normal Voice (pt is nonverbal; mute) Head: Atraumatic Neck: Normal Inspection, Supple Respiratory/Chest: No Accessory Muscle Use, Chest Non-Tender, Wheezing (inspiratory and expiratory). No: Lungs Clear, Normal Breath Sounds Cardiovascular: Normal Peripheral Pulses, Regular Rate, Rhythm, No Murmur Peripheral Pulses: 2+: Radial (L), Radial (R) GI/Abdominal: Normal Bowel Sounds, Soft, Non-Tender, No Distention (Male) Exam: Deferred Rectal (Males) Exam: Deferred Back Exam: Normal Inspection Extremities: Normal Inspection, Normal Range of Motion, Non-Tender, No Pedal Edema, Normal Capillary Refill Neurological: Alert, Oriented, Normal Cognition Psychiatric: Normal Affect, Normal Mood Skin Exam: Warm, Dry, Intact, Normal Color, No Rash Lymphatic: No Adenopathy Course - Vital Signs Text/Narrative:: Upon assessment, the patient does have audible inspiratory and expiratory wheezes throughout. The patient did receive an albuterol nebulizer by the EMS crew in route to the hospital. However his O2 saturations are 93% on room air at the time of triage. He is afebrile. I have ordered labs to include a CBC, CMP, C-reactive protein and magnesium level as well as a urine with micro and culture if indicated. I have ordered portable chest x-ray to rule out pneumonia. I have also ordered for him to receive a liter of normal saline IV, Toradol, Reglan and Benadryl. Reglan and Benadryl to hopefully vasquez off any extrapyramidal effects. We will see if we can abort his migraine headache with the fluids and medications. Last Recorded V/S: Last Vital Signs Temp 97.8 F 03/24/21 08:41 Pulse 83 03/24/21 08:41 Resp 16 03/24/21 08:41 BP 129/93 H 03/24/21 08:41 Pulse Ox 97 03/24/21 11:06 - Orders/Labs/Meds Orders: Active Orders 24 hr Category Date Time Status RT Aerosol Therapy [RC] ASDIRECTED Care 03/24/21 09:11 Active RT Post Treatment Assessment [RC] Click to Edit Care 03/24/21 10:41 Active RT Pre-Treatment Assessment [RC] Click to Edit Care 03/24/21 10:41 Active UA RFX ESAU AND CULT IF INDIC [URIN] Stat Lab 03/24/21 08:58 Ordered Sodium Chloride 0.9% [Saline Flush] Med 03/24/21 08:57 Active 10 ml FLUSH ASDIRECTED PRN Saline Lock Insert [OM.PC] Stat Oth 03/24/21 08:57 Ordered Medication Orders Sodium Chloride (Sodium Chloride 0.9% 10 Ml Syringe) 10 ml FLUSH ASDIRECTED PRN PRN Reason: Keep Vein Open Last Admin: 03/24/21 09:16 Dose: 10 ml Documented by: ROSARIO Labs: Laboratory Tests 03/24/21 03/24/21 03/24/21 Range/Units 09:15 09:15 10:11 WBC 11.00 H (4.23-9.07) K/mm3 RBC 4.86 (4.63-6.08) M/mm3 Hgb 14.4 (13.7-17.5) gm/dl Hct 41.2 (40.1-51.0) % MCV 84.8 (79.0-92.2) fl MCH 29.6 (25.7-32.2) pg MCHC 35.0 (32.2-35.5) g/dl RDW Std Deviation 38.9 (35.1-43.9) fL Plt Count 199 (163-337) K/mm3 MPV 11.2 (9.4-12.3) fl Neut % (Auto) 76.2 H (34.0-67.9) % Lymph % (Auto) 11.5 L (21.8-53.1) % Mobile % (Auto) 5.9 (5.3-12.2) % Eos % (Auto) 6.1 (0.8-7.0) Baso % (Auto) 0.2 (0.1-1.2) % Neut # (Auto) 8.38 H (1.78-5.38) K/mm3 Lymph # (Auto) 1.27 L (1.32-3.57) K/mm3 Mobile # (Auto) 0.65 (0.30-0.82) K/mm3 Eos # (Auto) 0.67 H (0.04-0.54) K/mm3 Baso # (Auto) 0.02 (0.01-0.08) K/mm3 Sodium 141 (136-145) mEq/L Potassium 3.4 L (3.5-5.1) mEq/L Chloride 105 (98-107) mEq/L Carbon Dioxide 26 (21-32) mEq/L Anion Gap 13.4 (5-15) BUN 9 (7-18) mg/dL Creatinine 1.0 (0.7-1.3) mg/dL Est Cr Clr Drug Dosing TNP Estimated GFR (MDRD) > 60 (>60) mL/min BUN/Creatinine Ratio 9.0 L (14-18) Glucose 119 H (70-99) mg/dL Calcium 8.6 (8.5-10.1) mg/dL Magnesium 1.7 L (1.8-2.4) mg/dL Total Bilirubin 2.4 H (0.2-1.0) mg/dL AST 22 (15-37) U/L ALT 35 (16-63) U/L Alkaline Phosphatase 116 (46-116) U/L C-Reactive Protein 3.8 H* (<1.0) mg/dL Total Protein 7.4 (6.4-8.2) g/dl Albumin 3.6 (3.4-5.0) g/dl Globulin 3.8 gm/dL Albumin/Globulin Ratio 1.0 (1-2) SARS-CoV-2 RNA (MARY) Negative (NEGATIVE) Meds: Medications Generic Name Dose Route Start Last Admin Trade Name Samara PRN Reason Stop Dose Admin Sodium Chloride 10 ml 03/24/21 08:57 03/24/21 09:16 Sodium Chloride 0.9% 10 Ml Syringe FLUSH 10 ml ASDIRECTED PRN Administration Keep Vein Open Discontinued Medications Generic Name Dose Route Start Last Admin Trade Name Samara PRN Reason Stop Dose Admin Albuterol/Ipratropium 3 ml 03/24/21 09:11 03/24/21 09:26 Albuterol/Ipratropium 3.0-0.5 Mg/3 Ml Neb Soln NEB 03/24/21 09:12 3 ml ONETIME ONE Administration Amoxicillin 1,000 mg 03/24/21 11:00 Amoxicillin 500 Mg Cap PO 03/24/21 11:01 ONETIME ONE Diphenhydramine HCl 25 mg 03/24/21 08:59 03/24/21 09:15 Diphenhydramine 50 Mg/Ml Sdv IVPUSH 03/24/21 09:00 25 mg ONETIME ONE Administration Sodium Chloride 1,000 mls @ 999 mls/hr 03/24/21 08:59 03/24/21 09:15 Normal Saline IV 03/24/21 09:59 999 mls/hr ONETIME ONE Administration Ipratropium [place] 0.5 mg 03/24/21 10:41 03/24/21 11:05 Ipratropium 0.02% 0.5 Mg/2.5 Ml Neb Soln NEB 03/24/21 10:42 0.5 mg ONETIME ONE Administration Ketorolac Tromethamine 30 mg 03/24/21 08:59 03/24/21 09:15 Ketorolac 30 Mg/Ml Sdv IVPUSH 03/24/21 09:00 30 mg ONETIME ONE Administration Metoclopramide HCl 5 mg 03/24/21 08:59 03/24/21 09:16 Metoclopramide 10 Mg/2 Ml Sdv IVPUSH 03/24/21 09:00 5 mg ONETIME ONE Administration Potassium Chloride 40 meq 03/24/21 09:57 03/24/21 10:57 Potassium Chloride 20 Meq Tab.Er PO 03/24/21 09:58 40 meq ONETIME ONE Administration Prednisone 40 mg 03/24/21 10:41 03/24/21 10:57 Prednisone 20 Mg Tab PO 03/24/21 10:42 40 mg ONETIME ONE Administration - Re-Assessments/Exams Free Text/Narrative Re-Assessment/Exam: 03/24/21 10:32 Portable view of the chest reviewed by myself and Dr. Ansari and nothing acute is appreciated. Formal radiology report is pending. 03/24/21 10:34 Hematology reveals a WBC of 11.0, hemoglobin 14.4, hematocrit 41.2, neutrophil percentage 76.2 Chemistry reveals a sodium of 141, potassium of 3.4, chloride 105, anion gap 13.4, BUN 9, creatinine 1.0, glucose 119, magnesium 1.7, total bilirubin 2.4, AST 22, ALT 35, alk phos 116, C-reactive protein 3.8 I have ordered for the patient to receive 40 mEq of potassium orally. I 03/24/21 10:40 Patient no longer has inspiratory wheezes however he does have expiratory wheezes noted bilaterally. I suspect that this is a flareup of asthma. I am going to order an Atrovent treatment and 40 mg of potassium oral. 03/24/21 10:42 Patient states his headache pain has resolved. 03/24/21 11:09 Radiologist impression portable view of the chest: 1. Slight density within both lung bases raising the probability of small area of pneumonia. Please correlate with the patient's symptoms. I have ordered for the patient to receive 1 g of amoxicillin p.o. Patient will be then be discharged home with a prescription. 03/24/21 11:19 Patient's Covid test is negative. Departure - Departure Time of Disposition: 11:30 Disposition: Home, Self-Care 01 Condition: Good Clinical Impression: Pneumonia Qualifiers: Pneumonia type: due to unspecified organism Laterality: bilateral Lung location: lower lobe of lung Qualified Code(s): J18.9 - Pneumonia, unspecified organism - Discharge Information Prescriptions: Amoxicillin 1,000 mg PO TID #28 tab Referrals: Vega Aj NP [Primary Care Provider] - Forms: ED Department Discharge Additional Instructions: You were seen in the emergency department today with complaints of shortness of breath, wheezing, and a migraine headache. Labs and a chest x-ray were completed. Your white blood cell count was slightly elevated and the radiologist read your chest x-ray as having pneumonia. You were started on an antibiotic and you were given 1 dose of steroid. I have sent a prescription to your pharmacy for an antibiotic called amoxicillin. You will need to take 2 tablets of this antibiotic 3 times daily until it is gone. You will then need to follow-up with your regular doctor in about 1 week to follow-up and make sure your pneumonia has resolved. You were also given IV fluids and medications to resolve your migraine headache and this did seem to help. Your potassium level was slightly low so we did give you a potassium tablet as well. Sepsis Event Note (ED) - Evaluation Sepsis Screening Result: No Definite Risk - Focused Exam Vital Signs: Vital Signs Temp Pulse Resp BP Pulse Ox Pulse Ox 03/24/21 11:06 97 03/24/21 09:11 96 03/24/21 08:41 97.8 F 83 16 129/93 H 93 L - My Orders Last 24 Hours: My Active Orders 03/24/21 08:57 Sodium Chloride 0.9% [Saline Flush] 10 ml FLUSH ASDIRECTED PRN Saline Lock Insert [OM.PC] Stat 03/24/21 08:58 UA RFX ESAU AND CULT IF INDIC [URIN] Stat 03/24/21 09:11 RT Aerosol Therapy [RC] ASDIRECTED 03/24/21 10:41 RT Post Treatment Assessment [RC] Click to Edit RT Pre-Treatment Assessment [RC] Click to Edit - Assessment/Plan Last 24 Hours: My Active Orders 03/24/21 08:57 Sodium Chloride 0.9% [Saline Flush] 10 ml FLUSH ASDIRECTED PRN Saline Lock Insert [OM.PC] Stat 03/24/21 08:58 UA RFX ESAU AND CULT IF INDIC [URIN] Stat 03/24/21 09:11 RT Aerosol Therapy [RC] ASDIRECTED 03/24/21 10:41 RT Post Treatment Assessment [RC] Click to Edit RT Pre-Treatment Assessment [RC] Click to Edit
[2021-03-24] MEDS ORDERED: Albuterol/Ipratropium 3.0-0.5 MG/3 ML Neb Soln NEB ONE (09:11)
[2021-03-24] MEDS ORDERED: Potassium Chloride 20 MEQ Tab.ER PO ONE (09:57)
[2021-03-24] MEDS ORDERED: predniSONE 20 MG Tab PO ONE (10:41)
[2021-03-24] MEDS ORDERED: Ipratropium 0.02% 0.5 MG/2.5 ML Neb Soln NEB ONE (10:41)
--- NOTE | 2021-03-24 10:46 | CR ---
Chest: Portable view of the chest was obtained. Comparison: No previous chest imaging is available. Slight density is seen within the lateral left lung base. Minimal density is noted within the medial right lung base. Lungs otherwise are clear. Heart size and mediastinum are normal. Bony structures show nothing acute. Impression: 1. Slight density within both lung bases raising the possibility of small areas of pneumonia. Please correlate with the patient's symptoms. Diagnostic code #3
[2021-03-24] MEDS ORDERED: Amoxicillin 500 MG Cap PO ONE (11:00)
== END 2021-03-24 11:49 | disposition home or self-care (01) ==
LOC: JD.ED 08:35
DX: J18.9 Pneumonia, unspecified organism (principal); J45.909 Unspecified asthma, uncomplicated; Z79.899 Other long term (current) drug therapy; Z20.822 Contact with and (suspected) exposure to COVID-19
CPT/HCPCS: 36415; 71045; 80053; 83735; 85025; 86140; 87635; 94640; 96374; 96375; 99285; A9270; J1200; J1885; J2765; J7030; J7512; 99284; J7620-GY; U0002

== ENCOUNTER 2021-03-25 15:36 | Emergency (ER) | payer MEDICAID ==
--- NOTE | 2021-03-25 16:01 | EDM.PDOC ---
ED HPI GENERAL MEDICAL PROBLEM - General Chief Complaint: Respiratory Problem Stated Complaint: COUGH AND CONGESTION Time Seen by Provider: 03/25/21 15:45 - History of Present Illness INITIAL COMMENTS - FREE TEXT/NARRATIVE: 30-year-old male presents the emergency room being short of breath and congested. Patient was seen here yesterday diagnosed with pneumonia. Started on amoxicillin 1000 mg 3 times a day. He is not aware of any fevers or chills. He does not appear to be getting worse but is not getting better. Patient denies any other complaints at this time. - Related Data Allergies Allergy/AdvReac Type Severity Reaction Status Date / Time No Known Allergies Allergy Verified 03/25/21 15:45 Home Meds: Home Meds QUEtiapine Fumarate [Quetiapine Fumarate] 100 mg PO BEDTIME 12/03/20 [History] FLUoxetine HCl [Fluoxetine HCl] 100 mg PO TID 01/06/21 [History] Magnesium Chloride [Slow-Mag] 71.5 mg PO DAILY #7 tablet. 01/06/21 [Rx] Amoxicillin 1,000 mg PO TID #28 tab 03/24/21 [Rx] Past Medical History HEENT History: Reports: Hard of Hearing Other HEENT History: left ear surgery; communicates with pen and paper Cardiovascular History: Reports: None Respiratory History: Reports: Asthma Gastrointestinal History: Reports: None Genitourinary History: Reports: None Musculoskeletal History: Reports: None Neurological History: Reports: Headaches, Chronic Other Neuro History: unable to get any other past history as if pt does not know what i mean-writing board communication. Psychiatric History: Reports: Depression, Psych Hospitalization(s), Suicidal Ideation Endocrine/Metabolic History: Reports: None Hematologic History: Reports: None Immunologic History: Reports: None Oncologic (Cancer) History: Reports: None Dermatologic History: Reports: None - Infectious Disease History Infectious Disease History: Reports: None - Past Surgical History HEENT Surgical History: Reports: Oral Surgery, Other (See Below) Other HEENT Surgeries/Procedures: Pt does not have any teeth, has had oral and ear surgeries in the past. Social & Family History - Family History Family Medical History: Unobtainable Cardiac: Reports: None Respiratory: Reports: None GI: Reports: None : Reports: None OBGYN: Reports: None Musculoskeletal: Reports: None - Tobacco Use Tobacco Use Status *Q: Never Tobacco User - Caffeine Use Caffeine Use: Reports: Energy Drinks, Soda - Recreational Drug Use Recreational Drug Use: No - Living Situation & Occupation Living situation: Reports: Single, Alone Occupation: Unemployed ED ROS GENERAL - Review of Systems Review Of Systems: See Below Constitutional: Reports: No Symptoms HEENT: Reports: Rhinitis, Sinus Problem Respiratory: Reports: Wheezing, Cough, Sputum. Denies: Shortness of Breath Cardiovascular: Reports: No Symptoms GI/Abdominal: Reports: No Symptoms ED EXAM, GENERAL - Physical Exam Exam: See Below Exam Limited By: Other (The patient is deaf but using note pads we are communicating well.) General Appearance: Alert, No Apparent Distress Ears: Normal External Exam, Normal Canal, Hearing Grossly Normal, Normal TMs Nose: Normal Inspection, Normal Mucosa, No Blood Throat/Mouth: Normal Inspection, Normal Lips, Normal Gums, Normal Oropharynx, Normal Voice, No Airway Compromise Head: Atraumatic, Normocephalic Neck: Normal Inspection, Supple, Non-Tender, Full Range of Motion Respiratory/Chest: No Respiratory Distress Cardiovascular: Regular Rate, Rhythm, No Edema, No Murmur, Other (He has bibasilar crackles expiratory wheezes and generalized coarse breath sounds) GI/Abdominal: Normal Bowel Sounds, Soft, No Mass Course - Vital Signs Last Recorded V/S: Last Vital Signs Temp 36.2 C 03/25/21 15:44 Pulse 68 03/25/21 15:44 Resp 19 03/25/21 15:44 BP 136/85 03/25/21 15:44 Pulse Ox 94 L 03/25/21 15:44 - Orders/Labs/Meds Orders: Active Orders 24 hr Category Date Time Status RT Post Treatment Assessment [RC] Click to Edit Care 03/25/21 16:21 Active RT Pre-Treatment Assessment [RC] Click to Edit Care 03/25/21 16:21 Active Meds: Medications Discontinued Medications Generic Name Dose Route Start Last Admin Trade Name Freq PRN Reason Stop Dose Admin Albuterol 0 gm 03/25/21 16:20 03/25/21 16:33 Albuterol 6.7 Gm Inhaler INH 03/25/21 16:21 2 puff ONETIME ONE Administration - Re-Assessments/Exams Free Text/Narrative Re-Assessment/Exam: 03/25/21 16:53 The patient was given an albuterol MDI after 2 puffs he sounds considerably better crackles have not improved wheezes are resolved and he still has a few coarse breath sounds. At this point I think he needs to give the antibiotics more time I will discharge him with the albuterol MDI 2 puffs every 3-4 hours while awake. Departure - Departure Time of Disposition: 16:54 Disposition: Home, Self-Care 01 Clinical Impression: Pneumonia Qualifiers: Pneumonia type: due to unspecified organism Laterality: bilateral Lung location: lower lobe of lung Qualified Code(s): J18.9 - Pneumonia, unspecified organism - Discharge Information Referrals: Vega Aj NP [Primary Care Provider] - Forms: ED Department Discharge Additional Instructions: Return to the emergency room with any questions problems or worsening symptoms. Follow-up in the clinic on Monday for recheck. You were given a inhaler and a spacer here in the emergency department use 2 puffs every 3-4 hours while awake. Sepsis Event Note (ED) - Evaluation Sepsis Screening Result: No Definite Risk - Focused Exam Vital Signs: Vital Signs Temp Pulse Resp BP Pulse Ox 03/25/21 15:44 36.2 C 68 19 136/85 94 L - My Orders Last 24 Hours: My Active Orders 03/25/21 16:21 RT Post Treatment Assessment [RC] Click to Edit RT Pre-Treatment Assessment [RC] Click to Edit - Assessment/Plan Last 24 Hours: My Active Orders 03/25/21 16:21 RT Post Treatment Assessment [RC] Click to Edit RT Pre-Treatment Assessment [RC] Click to Edit
[2021-03-25] MEDS ORDERED: Albuterol 6.7 GM Inhaler INH ONE (16:20)
== END 2021-03-25 17:58 | disposition home or self-care (01) ==
LOC: JD.ED 15:36
DX: J18.9 Pneumonia, unspecified organism (principal)
CPT/HCPCS: 99284; A9270; 99283